=== PATIENT | female | born 1985 | race Caucasian/White ===

== ENCOUNTER 2023-11-11 14:22 | Emergency (ER) | payer OTHER, SELFPAY ==
[2023-11-11 14:24] VITALS: BP 177/110; PULSE 79; RESP 16; TEMP 36.8; O2SAT 100; BMI 29.8
--- NOTE | 2023-11-11 14:40 | EKG12_ITS ---
Test Reason : CHEST DISCOMFORT Blood Pressure : / mmHG Vent. Rate : 075 BPM Atrial Rate : 075 BPM P-R Int : 142 ms QRS Dur : 082 ms QT Int : 380 ms P-R-T Axes : 052 039 002 degrees QTc Int : 424 ms Normal sinus rhythm Nonspecific T wave abnormality Abnormal ECG Confirmed by MONI TAO, ELIZABETH ([id number]), editor magazine YAMILET SINGH ([id number]) on 11/12/2023 1:05:27 PM Referred By: Confirmed By:ELIZABETH MONTENEGRO MD
--- NOTE | 2023-11-11 14:41 | EX.ED.DYSGE1 ---
HPI History of Present Illness Chief Complaint: Chest Pain Informant: patient Onset/Context/Timing Onset: Weeks Timing: Waxes and wanes Narrative Narrative: Patient presents secondary to hypertension and chest pressure. She has been monitoring her blood pressures at home. In late September she was running high for several days but seem to calm down in early October. Since November 02 she has had higher blood pressure readings again in the 140s to 170s systolic. She made an appointment [facility] and has an appointment next week. Today she developed some chest pressure so she comes in for evaluation. PFSH PFSH Medical History no medical history no medical history Home Medications NK 11/11/23 [History Last Taken Unknown] Allergy/AdvReac Type Severity Reaction Status Date / Time No Known Allergies Allergy Verified 11/11/23 14:24 Surgical History no surgical history Social History Smoking Status: Never smoker ROS ROS ED Constitutional Constitutional ED: Denies chills or fever(s) Eyes Eyes: Denies change in vision ENT ENT ED: Denies rhinorrhea or sore throat Cardiovascular Cardiovascular: Reports chest pain; Denies palpitations Respiratory/Chest Respiratory/Chest: Denies cough or dyspnea Gastrointestinal Gastrointestinal: Denies abdominal pain, nausea or vomiting Genitourinary Genitourinary ED: Denies dysuria Musculoskeletal Musculoskeletal: Denies back pain or extremity pain Integumentary Denies Abrasions or rash Neurologic Neurologic: Denies headache(s) or weakness Psychiatric Psychiatric: Denies anxiety or depression Allergic/Immunologic Allergic/Immunologic ED: Denies lip swelling or urticaria EXAM Physical Exam Const Vital Signs: 11/11/23 14:24 11/11/23 14:45 Temperature 98.2 F Temperature Source Temporal Pulse Rate 79 Respiratory Rate 16 Blood Pressure 177/110 H 161/100 H Blood Pressure Mean 132 120 Pulse Ox 100 Oxygen Delivery Method Room Air Positive well nourished and well developed General Appearance ED: well developed HEENT Reports moist mucous membranes Eyes EOMs intact bilaterally Chest Wall inspection of chest normal and palpation of chest normal Resp normal respiratory effort and clear to auscultation bilaterally Cardio regular rate and regular rhythm GI non-tender Palpation: soft Extremity normal to inspection Neuro oriented x3 and no sensory deficits noted Motor Exam: strength 5/5 throughout Psych mental status grossly normal Skin no rashes or lesions noted MDM MDM MDM Narrative Medical decision making narrative: Patient placed on security monitor. EKG obtained to evaluate for cardiac arrhythmia/ischemia. Labwork obtained to evaluate for leukocytosis, anemia, and electrolyte derangement. Chest x-ray obtained to evaluate for acute lung pathology, cardiac size, or mediastinal abnormality. History & Record Review Discussion w/independent historian: Patient Lab Data Attestation: I reviewed the patient's lab results. Labs: Laboratory Results - last 24 hr 11/11/23 11/11/23 11/11/23 14:45 15:16 17:50 WBC 6.0 RBC 4.08 L Hgb 12.4 Hct 37.2 MCV 91.2 MCH 30.4 MCHC 33.3 RDW Std Deviation 40.7 RDW Coeff of Deidra 12.3 Plt Count 262 MPV 10.3 Immature Gran % (Auto) 0.300 Neut % (Auto) 64.2 Lymph % (Auto) 27.9 [place] % (Auto) 6.3 Eos % (Auto) 0.8 Baso % (Auto) 0.5 Absolute Neuts (auto) 3.9 Absolute Lymphs (auto) 1.68 Nucleated RBC % 0 Sodium 138 Potassium 3.5 Chloride 109 H Carbon Dioxide 25.0 Anion Gap 4 L BUN 14 Creatinine 0.88 Estim Creat Clear Calc 81.69 Est GFR (MDRD) Af Amer 92 Est GFR (MDRD) Non-Af 76 BUN/Creatinine Ratio 15.9 Glucose 96 Calcium 8.9 Troponin I High Sens < 3 L < 3 L Urine Color Straw Urine Clarity Clear Urine pH 6.5 Ur Specific [place] 1.005 Urine Protein Negative Urine Glucose (UA) Normal Urine Ketones Negative Urine Occult Blood Negative Urine Nitrite Negative Urine Bilirubin Negative Urine Urobilinogen Normal Ur Leukocyte Esterase Negative Urine RBC 0 SEEN Urine WBC 0 SEEN Ur Squamous Epith Cells 0 SEEN Urine Bacteria 0 SEEN Urine Mucus 0 SEEN Radiography Diagnostic Testing: Clinical Impression(s) from Imaging Studies Chest X-Ray 11/11/23 14:45 IMPRESSION: Normal x-ray examination of the chest. Electronically Signed: Miguel Medel MD at 15:25 EST , EKG Initial EKG: Attestation: I personally reviewed and interpreted this EKG as follows: Interpretation: Sinus Rhythm (Sinus at 75 with nonspecific T wave flattening.) Treatment and Re-Evaluation :: CBC reveals normal white count 6.0 the hemoglobin of 12.4. Normal differential. Chemistry studies reveal normal potassium at 3.5. Renal function is normal. Initial troponin is less than 3 with 2-hour repeat troponin also less than 3. Urinalysis is unremarkable. EKG is sinus rhythm with flattened T waves. No prior studies available for comparison. Portable chest x-ray per my interpretation reveals no acute abnormalities and no evidence of cardiomegaly. Radiology interpretation is reviewed and agrees. Patient's blood pressure has been watched while here in the emergency room. Her systolic pressure is now in the 120s and 130s without any intervention. She will continue to monitor her symptoms at home and follow-up next week for her doctor's appointment as scheduled. Return instructions given. Discharge Plan Triage Chief Complaint: Chest Pain ED Provider: Carmelina Gilliland Dx/Rx/DC Orders Clinical Impression: Hypertension Instructions: ED Hypertension, To Be Confirmed Prescriptions: No Action NK Primary Care Provider: Care Physician,No Primary Referrals: Clarissa Roy MD [Med Staff - Customer Relations Representative] - Keep [facility] appointment Care Physician,No Primary [Primary Care Provider] - Disposition Disposition: Home, Self Care
[2023-11-11 14:45] VITALS: BP 161/100
--- NOTE | 2023-11-11 14:45 | RAD_ITS ---
STUDY: X-RAY CHEST REASON FOR EXAM: Female, 38 years old. cp TECHNIQUE: Single AP portable view of the chest. COMPARISON: None. FINDINGS: EKG electrodes are seen. The lungs are clear and expanded. There is no demonstrated pleural abnormality. Normal size heart. Normal mediastinum and oscar. Normal visualized pulmonary arteries. Normal visualized aortic arch and descending thoracic aorta. Normal visualized thoracic spine. Normal visualized ribs, clavicles, and shoulders. There is no demonstrated abnormality of the visualized soft tissue structures of the upper abdomen. RAD/Chest 1 View (Portable) IMPRESSION: Normal x-ray examination of the chest. Electronically Signed: Miguel Medel MD at 15:25 [facility] ,
--- NOTE | 2023-11-11 14:47 | NURSING ---
NO OLD EKGS
[2023-11-11 14:55] LABS: Absolute Lymphocyte Count 1.68 X10^3/uL (0.83-4.51); Absolute Neutrophil Count 3.9 X10^3/uL (2.0-7.7); Basophil# 0.03 X10^3/uL; Basophil% 0.5 % (0-1); Eosinophil# 0.05 X10^3/uL; Eosinophils% 0.8 % (0-5); Hematocrit 37.2 % (37-47); Hemoglobin 12.4 g/dL (12.0-15.0); Lymphocyte # 1.68 X10^3/ul (0.83-4.51); Lymphocyte % 27.9 % (19-41); Mean Corp Hgb Conc 33.3 g/dL (32-36); Mean Corpuscular Hgb 30.4 pg (27.0-32.0); Mean Corpuscular Volume 91.2 fL (81-99); Mean Platelet Vol. 10.3 fl (6.2-12.0); Monocyte# 0.38 X10^3/uL; Monocyte% 6.3 % (0-10); NRBC Flagged by Analyzer 0 % (0-5); Neutrophil # 3.86 X10^3/uL (2.7-7.7); Neutrophil % 64.2 % (47-70); Platelet Count 262 K/mm3 (150-450); RBC Distribution Width CV 12.3 % (11.6-14.6); RBC Distribution Width SD 40.7 fl (35.1-43.9); Red Blood Count 4.08 M/mm3 (4.2-5.4)
[2023-11-11 15:11] LABS: Anion Gap 4 (5-15); BUN 14 mg/dL (7-18); BUN/Creat Ratio 15.9 RATIO (10-20); Calcium,Total 8.9 mg/dL (8.5-10.1); Chloride 109 mmol/L (98-107); Creatinine, Serum 0.88 mg/dL (0.55-1.02); EST Glomerular Filtration Rate 76 mL/min (>60); Est Glom Filt Rate - Afr Amer 92 mL/min (>60); Estimated Creatinine Clearance 81.69 ml/min; Glucose 96 mg/dL (74-106); Potassium 3.5 mmol/L (3.5-5.1); Sodium Level 138 mmol/L (136-145); Troponin-I HS (w/2H Reflex) < 3 pg/mL (3.0-54.0)
[2023-11-11 15:25] LABS: Bacteria 0 SEEN /hpf (None Seen); Mucous, Urine 0 SEEN /hpf (<or=2+); Red Blood Cells-Urine 0 SEEN /hpf (0-5); Squamous Epithelial Cells - UA 0 SEEN /hpf (5-10); White Blood Cells 0 SEEN /hpf (0-5)
[2023-11-11 15:29] LABS: Color, Urine Straw (Yellow); Glucose, Dipstick Normal (Normal); Ketone-Dipstick Negative (Negative); Leukocyte Esterase-Dipstick Negative /ul (Negative); Nitrite-Dipstick Negative (Negative); Occult Blood-Urine Negative /ul (Negative); Protein-Dipstick Negative (Negative); Specific Gravity, Urine 1.005 (1.002-1.030); Urine Bilirubin Dipstick Negative (Negative); Urine Clarity Clear (Clear); Urine Urobilinogen Normal (Normal); Urine pH 6.5 (5.0 - 8.0)
[2023-11-11 16:46] LABS: Reflex Troponin-HS? (from REC) Y
[2023-11-11 18:21] LABS: Troponin-I HS < 3 pg/mL (3.0-54.0)
[2023-11-11 18:22] VITALS: BP 132/86; PULSE 63; RESP 16; TEMP 36.3; O2SAT 98
== END 2023-11-11 18:34 | disposition home or self-care (01) ==
PROVIDERS: Emergency Provider Emergency Medicine; Visit Provider Emergency Medicine
DX: I10 Essential (primary) hypertension (principal); R07.89 Other chest pain
CPT/HCPCS: 71045; 80048; 81001; 84484; 85025; 93005; 99284; A4216

== ENCOUNTER → 2024-04-07 | Outpatient (CLI) | payer SELFPAY ==
--- NOTE | 2024-04-07 13:46 | ECHOD_ITS ---
Reason For Study: ELEVATED BLOOD PRESSURE Procedure This was a 2D Doppler, Color Flow transthoracic echocardiogram. Exam performed in department. Left Ventricle Normal size and thickness. The left ventricular ejection fraction is 65 %. Normal diastology for age. Right Ventricle Normal right ventricle. Atria The left and right atria are normal. Mitral Valve Trivial mitral valve insufficiency. Tricuspid Valve Trivial tricuspid valve insufficiency. Unable to estimate RV systolic pressure due to insufficient tricuspid regurgitant envelope. Aortic Valve Trisinus/trileaflet aortic valve. Pulmonic Valve Mild (1+) pulmonic valve insufficiency. Great Vessels Normal sized aortic root. Pericardium/Pleural No pericardial effusion. MMode/2D Measurements & Calculations LVIDd: 4.4 cm IVSd: 1.0 cm LVOT diam: 2.2 cm LVIDs: 3.0 cm LVPWd: 0.93 cm LVOT area: 3.6 cm2 RVDd: 2.6 cm FS: 30.8 % Ao root diam: 2.8 cm LAV(MOD-bp): 40.6 ml LVAd ap4: 22.7 cm2 LAV(MOD-bp) Indexed: 23.4 ml/m2 LVLd ap4: 7.9 cm LAV(MOD-sp2): 47.5 ml EDV(MOD-sp4): 55.0 ml LAV(MOD-sp4): 33.3 ml EDV(sp4-el): 55.4 ml LVAs ap4: 12.1 cm2 LVLs ap4: 6.4 cm ESV(MOD-sp4): 19.4 ml ESV(sp4-el): 19.3 ml EF(MOD-sp4): 64.7 % EF(sp4-el): 65.2 % LVAd ap2: 25.5 cm2 SV(MOD-sp4): 35.6 ml SV(MOD-sp2): 45.6 ml LVLd ap2: 8.3 cm EDV(MOD-sp2): 67.2 ml EDV(sp2-el): 66.4 ml LVAs ap2: 12.3 cm2 LVLs ap2: 6.1 cm ESV(MOD-sp2): 21.7 ml ESV(sp2-el): 21.1 ml EF(MOD-sp2): 67.8 % SV(sp4-el): 36.1 ml LA dimension(2D): 3.4 cm LA A4 area: 14.4 cm2 RA A4 area: 9.0 cm2 TAPSE: 1.9 cm Time Measurements MV dec time: 0.16 sec Doppler Measurements & Calculations MV E max og: 82.3 cm/sec Lat Peak E' Og: 15.8 cm/sec Med Peak E' Og: 11.2 cm/sec MV A max og: 66.4 cm/sec E/E' lat: 5.2 E/E' med: 7.4 MV E/A: 1.2 Ao V2 max: 128.4 cm/sec LV V1 max: 109.5 cm/sec MV dec slope: 522.3 cm/sec2 Ao max P.6 mmHg LV V1 max P.8 mmHg Ao V2 mean: 91.1 cm/sec LV V1 mean P.7 mmHg Ao mean P.7 mmHg LV V1 mean: 76.3 cm/sec Ao V2 VTI: 27.6 cm LV V1 VTI: 23.5 cm AV (velocity ratio): 0.85 MARY(I,D): 3.1 cm2 MARY(V,D): 3.1 cm2 SV(LVOT): 85.6 ml PA V2 max: 90.5 cm/sec PI end-d og: 86.8 cm/sec PA max PG (full): 1.6 mmHg ECHO/Echo Complete Interpretation Summary The left ventricular ejection fraction is 65 %. Mild (1+) pulmonic valve insufficiency. Ordering Physician: Clarissa Roy Referring Physician: Clarissa Roy Performed By: Felicita Dalton RDCS
== END | disposition home or self-care (01) ==
PROVIDERS: PCP Family Medicine; Referring Provider Family Medicine; Visit Provider Family Medicine
DX: R03.0 Elevated blood-pressure reading, without diagnosis of hypertension (principal); R07.9 Chest pain, unspecified
CPT/HCPCS: 93306

== ENCOUNTER 2024-05-25 10:48 | Emergency (ER) | payer OTHER, SELFPAY ==
[2024-05-25 10:48] VITALS: BP 160/97; PULSE 76; RESP 14; TEMP 36.7; O2SAT 98
--- NOTE | 2024-05-25 11:28 | EKG12_ITS ---
Test Reason : CHEST PAIN Blood Pressure : / mmHG Vent. Rate : 062 BPM Atrial Rate : 062 BPM P-R Int : 138 ms QRS Dur : 078 ms QT Int : 412 ms P-R-T Axes : 050 049 036 degrees QTc Int : 418 ms Normal sinus rhythm Nonspecific T wave abnormality Abnormal ECG Confirmed by MONI TAO, ELIZABETH ([id number]), health editor LIDIA COVINGTON ([id number]) on 05/29/2024 6:53:59 AM Referred By: Confirmed By:ELIZABETH MONTENEGRO MD
[2024-05-25 11:35] LABS: Absolute Lymphocyte Count 2.04 X10^3/uL (0.83-4.51); Absolute Neutrophil Count 3.4 X10^3/uL (2.0-7.7); Basophil# 0.04 X10^3/uL; Basophil% 0.7 % (0-1); Eosinophil# 0.14 X10^3/uL; Eosinophils% 2.3 % (0-5); Hematocrit 34.3 % (37-47); Hemoglobin 10.6 g/dL (12.0-15.0); Lymphocyte # 2.04 X10^3/ul (0.83-4.51); Lymphocyte % 33.3 % (19-41); Mean Corp Hgb Conc 30.9 g/dL (32-36); Mean Corpuscular Hgb 25.9 pg (27.0-32.0); Mean Corpuscular Volume 83.9 fL (81-99); Monocyte# 0.45 X10^3/uL; Monocyte% 7.4 % (0-10); NRBC Flagged by Analyzer 0 % (0-5); Neutrophil # 3.43 X10^3/uL (2.7-7.7); Platelet Count 288 K/mm3 (150-450); RBC Distribution Width CV 12.9 % (11.6-14.6); RBC Distribution Width SD 39.5 fl (35.1-43.9); Red Blood Count 4.09 M/mm3 (4.2-5.4); White Blood Count 6.1 K/mm3 (4.4-11.0)
--- NOTE | 2024-05-25 11:35 | RAD_ITS ---
STUDY: X-RAY CHEST REASON FOR EXAM: Female, 39 years old. Chest pain TECHNIQUE: PA and lateral views of the chest. COMPARISON: Comparison is made with prior study of November 11, 2023. FINDINGS: EKG adenosine The lungs are clear and expanded. There is no demonstrated pleural abnormality. Normal size heart. Normal mediastinum and oscar. Normal visualized pulmonary arteries. Normal visualized aortic arch and descending thoracic aorta. Normal visualized thoracic spine. Normal visualized ribs, clavicles, and shoulders. There is no demonstrated abnormality of the visualized soft tissue structures of the upper abdomen. RAD/Chest PA and Lateral IMPRESSION: Normal x-ray examination of the chest. Electronically Signed: Miguel Medel MD at 11:47 EDT ,
--- NOTE | 2024-05-25 11:38 | EDS_ITS ---
<Statement entered by Jason Spangler DO - 05/25/24 15:54> Patient was seen and examined with nurse practitioner all All components of the history and physical confirmed and agreed. History of present illness and physical exam: Patient is a 39-year-old female with no known significant past medical history who presented to the emergency department chief complaint of chest pain. Patient states that she has had chest pain on and off now for several weeks has been following up with her primary care physician who referred her to cardiology. She states that she just recently completed a Holter monitor. She states that the last 4 days she has have had pain every single day which she normally does not have pain every single day. States that the pain will come and go nothing makes this better or worse. Patient states that she has not had any history of blood clots in her legs or lungs denies any recent travel history. Denies any recent sick contacts. She states today that she called the sprinkler helper office who ultimately referred her to here to the emergency department. Review of systems: Agree with above Physical exam: Agree with above MDM Patient is a 39-year-old female who presented to the emerged part with a chief complaint of chest pain the past 4 days. Patient will have a workup performed here on the differential diagnose includes but not limited to ACS, GERD, pericarditis. Once workup is obtained and reviewed she will be reevaluated. Patient CBC was largely unremarkable with no evidence of leukocytosis white blood count normal at 6.1, hemoglobin stable 10.6, platelet count normal at 288. Patient's AST and ALT were 27 and 37 respectively, troponin was less than 3. Patient's urinalysis did not reveal any evidence of infection and had a negative test. Patient's x-ray of her chest showed no acute cardiopulmonary processes. Patient's EKG was reviewed and showed sinus rhythm with a rate of 62 bpm. Patient had a bedside echocardiogram performed no pericardial effusions noted ejection fraction appeared to be normal. At this point time did discuss the results with the patient and she is advised to keep a blood pressure log and take this to her primary care physician to see if she needs an antihypertensive. Patient was also encouraged to follow-up with her sprinkler helper in outpatient setting. She was encouraged return with worsening symptoms or other concerns. She is agreeable with the plan as well as her significant other at bedside all question concerns answered she was discharged home in stable condition. Final impression: Chest pain Disposition: Patient will be discharged home in stable condition Supervising attending attestation: Jason PEÑALOZA History of Present Illness Chief Complaint: Chest Pain Narrative Narrative: Patient is a 39-year-old female who does not take any prescription medications only vitamins presenting to the emergency department for chest pain. Patient states that she has been having chest pain on and off for multiple weeks, she has seen her PCP who referred her to cardiology. Patient did have a Holter monitor placed. Patient states the pain comes and goes however what concerned her is for the last 4 days she has been having pain every day. This is not constant, it does not coincide with any walking or exertion. Patient dates she just be sitting there and it happened. She denies any pain today however she called the sprinkler helper office who referred her to the [facility]. Denies any history of PE, DVT, denies any recent travel. Denies any recent surgery. [facility] Medical History (Updated 05/25/24 @ 12:55 by TEZ Alexander) Tachycardia Home Medications ?Medication ?Instructions ?Recorded ?Last Taken ?Type NK 11/11/23 Unknown History Allergy/AdvReac Type Severity Reaction Status Date / Time No Known Allergies Allergy Verified 05/25/24 10:49 Family History (Updated 05/23/24 @ 14:20 by Christiana Dobbins RN) Mother Rodrigo's angina Hypertension Grandfather Cancer Social History Smoking Status: Never smoker ROS ROS ED ROS Narrative Constitutional: Negative for fever, chills, weight loss, weakness Eyes: Negative for vision loss, vision change, double vision ENT: Negative for any sore throat, ear pain, congestion Cardiovascular: Negative for any tightness, palpitations. Positive for chest pain Respiratory: Negative for any cough, sputum production, hemoptysis, dyspnea, dyspnea on exertion, orthopnea Gastrointestinal: Negative for any abdominal pain, nausea, vomiting, diarrhea, constipation, blood in stool, blood in vomit : Negative for any urinary frequency, dysuria, retention, blood in urine Muscle skeletal: Negative for any neck pain, back pain Neurological: Negative for any headache, syncope, dizziness Skin: Negative for any rashes, itching, abrasions, lacerations Psychiatric: Negative for any depression, anxiety, stress, suicidal ideation, homicidal ideation Hematologic: Negative for any excessive bruising, easy bleeding EXAM Physical Exam Narrative Exam Narrative: Vital signs reviewed. HEET: Head normocephalic atraumatic, TMs clear bilaterally. Posterior pharynx is clear, moist mucous membranes. Nares clear bilaterally. Neck: Supple with no lymphadenopathy or tenderness. No signs of meningismus. Cardiac: Regular rate and rhythm no murmurs gallops or rubs, equal peripheral pulses bilaterally. Respiratory: Lungs clear to auscultation bilaterally. No chest tenderness. Abdomen: Soft, nontender, nondistended. No abdominal bruit or pulsatile masses. No hepatosplenomegaly Extremities: No peripheral edema, no signs of gross trauma or deformity. Active full range of motion of all extremities. Neuro: Cranial nerves II through XII intact, no focal neurological deficits. Skin: Clean dry and intact with no rash, purpura, petechiae, vesicles or pustules. Backs/flank: No CVA tenderness, no midline spinal tenderness, no deformity. Psych: Normal mood and affect. No SI, HI or acute psychosis. Const Vital Signs: 05/25/24 10:48 Temperature 98.1 F Temperature Source Temporal Pulse Rate 76 Respiratory Rate 14 Blood Pressure 160/97 H Blood Pressure Mean 118 Pulse Ox 98 Oxygen Delivery Method Room Air Positive well nourished MDM MDM Lab Data Labs: Laboratory Results - last 24 hr 05/25/24 05/25/24 11:13 12:15 WBC 6.1 RBC 4.09 L Hgb 10.6 L Hct 34.3 L MCV 83.9 MCH 25.9 L MCHC 30.9 L RDW Std Deviation 39.5 RDW Coeff of Deidra 12.9 Plt Count 288 MPV 11.0 Immature Gran % (Auto) 0.300 Neut % (Auto) 56.0 Lymph % (Auto) 33.3 [place] % (Auto) 7.4 Eos % (Auto) 2.3 Baso % (Auto) 0.7 Absolute Neuts (auto) 3.4 Absolute Lymphs (auto) 2.04 Nucleated RBC % 0 Sodium 140 Potassium 4.0 Chloride 109 H Carbon Dioxide 26.0 Anion Gap 5 BUN 12 Creatinine 0.82 Est GFR (MDRD) Af Amer 99 Est GFR (MDRD) Non-Af 82 BUN/Creatinine Ratio 14.6 Glucose 88 Calcium 9.1 Total Bilirubin 0.20 AST 27 ALT 37 Alkaline Phosphatase 52 Troponin I High Sens < 3 L Total Protein 7.5 Albumin 3.6 Globulin 3.9 Albumin/Globulin Ratio 0.9 Lipase 51 Urine Color Straw Urine Clarity Clear Urine pH 6.5 Ur Specific [place] 1.010 Urine Protein Negative Urine Glucose (UA) Normal Urine Ketones Negative Urine Occult Blood Negative Urine Nitrite Negative Urine Bilirubin Negative Urine Urobilinogen Normal Ur Leukocyte Esterase Negative Urine RBC 0 SEEN Urine WBC 0 SEEN Ur Squamous Epith Cells 0-5 SEEN Urine Bacteria 0 SEEN Urine Mucus 0 SEEN Urine Test Negative Radiography Diagnostic Testing: Clinical Impression(s) from Imaging Studies Chest X-Ray 05/25/24 11:35 IMPRESSION: Normal x-ray examination of the chest. Electronically Signed: Miguel Medel MD at 11:47 EDT , EKG EKG shows normal sinus rhythm: Attestation: I personally reviewed and interpreted this EKG as follows: Interpretation: Sinus Rhythm Comments: Normal sinus rhythm, rate 62 bpm, AK interval 130 ms, QRS duration 78 ms, no acute ST elevation, no acute infarct noted. Treatment and Re-Evaluation :: Differential diagnosis includes however is not limited to: ACS, IA, anxiety, PE Patient appears to be in no obvious distress vital signs are stable, patient is nontoxic-appearing. Presenting to the emergency department with complaints of chest pain. Patient will receive a chest pain workup including two-view chest x-ray, CBC CMP lipase as well as a troponin. Patient is currently not have any chest pain at this time. Patient heart rate is 75, 100% on room air, patient denies any chest pain with inspiration. Low suspicion for any PE. All radiologic examinations were read, reviewed by the emergency department attending. From these reads, a plan of care will be put in place. Patient appears generally well, reevaluation, patient was still pain-free. Chest x-ray was normal, lab values showing normal CBC, chemistries were unremarkable, troponin was less than 3 with a lipase of 51. No evidence of acute ACS, IA, cardiopulmonary pathology. Urinalysis was negative for infection. Patient was offered some antiacids however she states he would prefer to follow-up outpatient, does not want any prescriptions today. At this time, patient will follow-up outpatient. Stable for discharge. Discharge Plan Triage Chief Complaint: Chest Pain ED Midlevel Provider: Clem Gusman ED Provider: Jason Spangler Dx/Rx/DC Orders Clinical Impression: Chest pain Instructions: ED Chest Pain, Uncertain Cause Prescriptions: No Action NK Primary Care Provider: Clarissa Roy Referrals: Clarissa Roy MD [Primary Care Provider] - Activity Restrictions/Additional Instructions: Please follow-up outpatient. Print Language: Burundian Disposition Disposition: Home, Self Care
[2024-05-25 11:56] LABS: ALB/GLOB Ratio 0.9 RATIO (0.9-2.4); AST(SGOT) 27 U/L (15-37); Alanine Aminotransfer ALT/SGPT 37 U/L (13-56); Albumin, Serum 3.6 g/dL (3.2-5.0); Alkaline Phosphatase 52 U/L (45-117); Anion Gap 5 (5-15); BUN 12 mg/dL (7-18); BUN/Creat Ratio 14.6 RATIO (10-20); Calcium,Total 9.1 mg/dL (8.5-10.1); Chloride 109 mmol/L (98-107); Creatinine, Serum 0.82 mg/dL (0.55-1.02); EST Glomerular Filtration Rate 82 mL/min (>60); Est Glom Filt Rate - Afr Amer 99 mL/min (>60); Globulin 3.9 g/dL (2.2-4.2); Glucose 88 mg/dL (74-106); Lipase 51 U/L (13-75); Protein, Total 7.5 g/dL (6.4-8.2); Sodium Level 140 mmol/L (136-145); Troponin-I HS < 3 pg/mL (3.0-54.0)
[2024-05-25 12:22] VITALS: PULSE 63; RESP 15; O2SAT 99
[2024-05-25 12:28] LABS: Bacteria 0 SEEN /hpf (None Seen); Mucous, Urine 0 SEEN /hpf (<or=2+); Red Blood Cells-Urine 0 SEEN /hpf (0-5); White Blood Cells 0 SEEN /hpf (0-5)
[2024-05-25 12:30] VITALS: PULSE 66; RESP 16; O2SAT 100
[2024-05-25 12:33] LABS: Color, Urine Straw (Yellow); Glucose, Dipstick Normal (Normal); Ketone-Dipstick Negative (Negative); Leukocyte Esterase-Dipstick Negative /ul (Negative); Nitrite-Dipstick Negative (Negative); Occult Blood-Urine Negative /ul (Negative); Protein-Dipstick Negative (Negative); Urine Bilirubin Dipstick Negative (Negative); Urine Clarity Clear (Clear); Urine Urobilinogen Normal (Normal); Urine pH 6.5 (5.0 - 8.0)
[2024-05-25 12:44] LABS: Squamous Epithelial Cells - UA 0-5 SEEN /hpf (5-10)
[2024-05-25 12:45] VITALS: BP 152/92; PULSE 60; RESP 14; O2SAT 99
[2024-05-25 12:45] LABS: Internal QC Validated? YES +Cl - CLEAR BKGD; Pregnancy, Urine Negative Negative; Record Kit Lot#,Urine Preg HCG0000772476
[2024-05-25 13:43] VITALS: BP 153/93; PULSE 64; RESP 16; TEMP 36.8; O2SAT 99
== END 2024-05-25 13:43 | disposition home or self-care (01) ==
PROVIDERS: Nurse Practitioner; Emergency Provider Emergency Medicine; PCP Family Medicine; Visit Provider Emergency Medicine
DX: R07.9 Chest pain, unspecified (principal)
CPT/HCPCS: 71046; 80053; 81001; 81025; 83690; 84484; 85025; 93005; 99283; A4216

== ENCOUNTER → 2024-06-13 | Outpatient (CLI) | payer SELFPAY ==
--- NOTE | 2024-06-15 11:17 | STRESSREP_ITS ---
Stress Test Report Date: 06/13/2024 Procedure: Exercise tolerance test Indications: Chest pain Consent: Per the patient Procedure: The patient exercised on a Isaías protocol for 9 minutes and 45 seconds achieving a peak heart rate of 160 bpm (88% predicted maximal heart rate) with a peak blood pressure 160/90 mmHg and a peak MET capacity of approximately 12.5 MET's. The baseline ECG demonstrated normal sinus rhythm. The peak exercise ECG demonstrated no significant ischemic changes. [There were no cardiac dysrhythmias pretest, during exercise, or recovery]. The functional capacity was considered normal for age. Patient had midsternal chest pressure at peak exercise. The examination was discontinued secondary to achieving target heart rate. Impression: 1. Technically adequate (percent predicted maximal heart rate greater than 85%) exercise tolerance test 2. Stress test is positive for exercise-induced chest pain. 3. Stress test test is negative for exercise-induced EKG changes of ischemia. 4. Functional capacity is normal for age This note was generated with [employer] software. It may contain incorrect words, spelling, and punctuation that were not noted in checking the note before signing.
== END | disposition home or self-care (01) ==
LOC: CVS 12:25
PROVIDERS: PCP Family Medicine; Referring Provider Internal Medicine Cardiovascular Disease; Visit Provider Internal Medicine Cardiovascular Disease
DX: R07.9 Chest pain, unspecified (principal); R00.2 Palpitations
CPT/HCPCS: 93017

== ENCOUNTER → 2024-07-03 | Outpatient (CLI) | payer SELFPAY ==
[2024-07-03 14:41] LABS: Anion Gap 5 (5-15); BUN 10 mg/dL (7-18); BUN/Creat Ratio 10.4 RATIO (10-20); Calcium,Total 9.3 mg/dL (8.5-10.1); Chloride 99 mmol/L (98-107); Creatinine, Serum 0.96 mg/dL (0.55-1.02); EST Glomerular Filtration Rate 69 mL/min (>60); Est Glom Filt Rate - Afr Amer 83 mL/min (>60); Glucose 103 mg/dL (74-106); Potassium 3.4 mmol/L (3.5-5.1); Sodium Level 135 mmol/L (136-145)
== END | disposition home or self-care (01) ==
PROVIDERS: PCP Family Medicine; Referring Provider Internal Medicine Cardiovascular Disease; Visit Provider Internal Medicine Cardiovascular Disease
DX: I10 Essential (primary) hypertension (principal)
CPT/HCPCS: 36415; 80048

== ENCOUNTER → 2024-07-19 | Outpatient (CLI) | payer SELFPAY ==
--- NOTE | 2024-07-19 13:13 | CT_ITS ---
STUDY: CT CHEST WITHOUT CONTRAST REASON FOR EXAM: Female, 39 years old. CP WITH STRESS TEST RADIATION DOSAGE (If Supplied By Facility): CTDIvol = ( 17.60 ) mGy, DLP = ( 1027.34 ) mGycm TECHNIQUE: Transaxial imaging was performed without the administration of intravenous contrast material. Cardiac over read examination. Individualized dose optimization techniques were used for this CT. COMPARISON: No relevant priors. FINDINGS: CHEST The lungs are normal. There is no demonstrated pleural abnormality. Normal heart and pericardium. No coronary calcification is seen. Normal mediastinum. Normal hilar regions. Normal unenhanced pulmonary arteries. Normal aorta arch and descending thoracic aorta. Normal osseous structures. Fatty infiltration of the liver. Small hiatal hernia. CT/Limited Chest CT Cardiac Only IMPRESSION: No coronary artery calcification is seen. Electronically Signed: Miguel Medel MD at 14:45 EDT ,
[2024-07-19 13:18] VITALS: BP 144/100; PULSE 62; RESP 16; TEMP 36.6; O2SAT 100; BMI 29.2
[2024-07-19 13:36] VITALS: BP 144/100; PULSE 58
[2024-07-19] MEDS: Nitroglycerin SL (ED/IMG/CATH) 0.4 MG TABLET SL (13:36)
[2024-07-19 13:44] VITALS: BP 117/81; PULSE 69; RESP 14; O2SAT 99
--- NOTE | 2024-07-19 17:58 | CCTA_ITS ---
CCTA w/Cont Coronary Arteries Date of Study:: 07/19/24 CHEST PAIN Coronary Calcium Scoring: High-resolution Computed Tomographic imaging of the chest was performed on [07/19/24 ], with particular attention paid to the coronary arteries. Intravenous contrast agent was administered per protocol and images reconstructed and displayed. LEFT MAIN CORONARY ARTERY: Arises from the left coronary cusp and is normal [] LEFT ANTERIOR DESCENDING CORONARY ARTERY: Arises from the left main coronary artery and courses towards the apex of the ventricle with no significant atherosclerotic plaquing [] LEFT CIRCUMFLEX CORONARY ARTERY: Nondominant vessel with no significant atherosclerotic plaquing noted [] RIGHT CORONARY ARTERY: Dominant right coronary artery giving of a posterior ofelia cending artery and posterolateral vessel with no atherosclerosis noted Conclusion: CT angiogram demonstrating no significant atherosclerotic plaquing and no stenosis present.
== END | disposition home or self-care (01) ==
LOC: CT 13:08
PROVIDERS: PCP Family Medicine; Referring Provider Internal Medicine Cardiovascular Disease; Visit Provider Internal Medicine Cardiovascular Disease
DX: R07.9 Chest pain, unspecified (principal)
CPT/HCPCS: 75574; 76380; Q9967

== ENCOUNTER → 2025-03-06 | Outpatient (CLI) | payer SELFPAY ==
[2025-03-06 11:59] LABS: Absolute Lymphocyte Count 2.14 X10^3/uL (0.83-4.51); Absolute Neutrophil Count 3.8 X10^3/uL (2.0-7.7); Basophil# 0.04 X10^3/uL; Basophil% 0.6 % (0-1); Eosinophil# 0.14 X10^3/uL; Eosinophils% 2.2 % (0-5); Hematocrit 38.2 % (37-47); Hemoglobin 12.9 g/dL (12.0-15.0); Lymphocyte # 2.14 X10^3/ul (0.83-4.51); Lymphocyte % 33.1 % (19-41); Mean Corp Hgb Conc 33.8 g/dL (32-36); Mean Corpuscular Hgb 30.9 pg (27.0-32.0); Mean Corpuscular Volume 91.4 fL (81-99); Mean Platelet Vol. 11.1 fl (6.2-12.0); Monocyte% 4.6 % (0-10); NRBC Flagged by Analyzer 0 % (0-5); Neutrophil # 3.83 X10^3/uL (2.7-7.7); Neutrophil % 59.2 % (47-70); Platelet Count 268 K/mm3 (150-450); RBC Distribution Width CV 12.3 % (11.6-14.6); RBC Distribution Width SD 40.6 fl (35.1-43.9); Red Blood Count 4.18 M/mm3 (4.2-5.4); White Blood Count 6.5 K/mm3 (4.4-11.0)
[2025-03-06 12:32] LABS: Anion Gap 11 (5-15); BUN 10 mg/dL (4-19); Calcium,Total 9.7 mg/dL (7.6-11.0); Carbon Dioxide 24.5 mmol/L (21.0-32.0); Chloride 102 mmol/L (98-108); Creatinine, Serum 0.82 mg/dL (0.70-1.20); EST Glomerular Filtration Rate 94 (>60); Glucose 81 mg/dL (70-99); Potassium 4.3 mmol/L (3.3-5.1); Sodium Level 138 mmol/L (133-145)
--- OUTSIDE RECORDS SUMMARY | 2025-03-06 21:37 | XMS RPT_ITS | CCD ---
Author Organization [facility] CliniSynm Care Team Providers Care Biodiesel Engine Specialist Name Role Phone [facility] Attending Unavailable [facility] Primary Care Unavailable [facility] Admitting Unavailable NO, DOCTOR ON Consulting Unavailable [facility] Referring Unavailable Per Lomeli Attending Unavailable [facility] Primary Care Unavailable Per Lomeli Consulting Unavailable Per Isaac Attending Unavailable Per Lomeli Referring Unavailable [facility] Primary Care Unavailable [facility] Referring Unavailable Per Lomeli Attending Unavailable [facility] Referring Unavailable [facility] Attending Unavailable [facility] Primary Care Unavailable Care Physician, No Primary Primary Care Unava ilable Carmelina Gilliland Attending Unavailable [facility] Primary Care Unavailable Per Lomeli Referring Unavailable Per Lomeli Attending Unavailable Lyndsey Isidro Attending Unavailable [facility] Primary Care Unavailable [facility] Primary Care Unavailable [facility], Clarissa Referring Unavailable Per Lomeli Attending Unavailable [facility] Primary Care Unavailable Per Lomeli Attending Unavailable Per Lomeli Referring Unavailable [facility] Primary Care Unavailable Per Lomeli Attending Unavailable Per Lomeli Referring Unavailable [facility] Primary Care Unavailable Jason Spangler Attending Unavailable [facility] Primary Care Unavailable Per Lomeli Attending Unavailable Per Lomeli Referring Unavailable [facility] Unavailable Per Lomeli Referring Unavailable Viola Dumont Attending [facility]availabl e [facility] Unavailable Per Lomeli Consulting Unavailable Per Lomeli Referring Unavailable Viola Dumont Attending Unavailchristian Roy MD, Dr. Romo Primary Care Provider Dr. Clarissa Roy MD Referring Provider Anupama Diaz Attending Provider Medications Current Medications Medication Drug Class(es) Dates Sig (Normalized) Sig (Original) 24 hr metoprolol succinate 50 mg extended release oral tablet (2 sources) beta-Adrenergic Desi Start: 06-26-2024 take 1 tablet by mouth twice daily Metoprolol Succinate 50 mg tablet extended release 24 hr Active 50 mg PO TWICE A DAY June 26, 2024 8:46am Start: 06-01-2024 End: 06-26-2024 take 1 tablet by mouth once daily Metoprolol Succinate 50 mg tablet extended release 24 hr Discontinued 50 mg PO daily June 01, 2024 12:00am June 26, 2024 8:47am Completed/Discontinued Medications Medication Drug Class(es) Dates Sig (Normalized) Sig (Original) hydroCHLOROthiazide 25 mg oral tablet (1 source) Thiazide Diuretic Start: End: take 1 tablet by mouth once daily in the morning Hydrochlorothiazide 25 mg tablet Discontinued 25 mg PO EVERY MORNING June 26, 2024 12:00am March 06, 2025 9:31am Problems Active Problems Problem Classification Problem Date Documented Da te Episodic/Chronic Cardiac dysrhythmias (5 sources) Palpitations; Translations: [Tachycardia, unspecified] Onset: 06-01-2024 06-01-2024 Episodic Essential hypertension (5 sources) Hypertensive disorder; Translations: [Essential (primary) hypertension] Onset: 07-25-2024 11-11-2023 Chronic Malaise and fatigue (2 sources) Fatigue; Translations: [Other fatigue] 03-06-2025 Episodic Nonspecific chest pain (4 sources) Chest pain, unspecified; Translations: [Chest pain] Onset: 08-08-2024 06-26-2024 Episodic Past or Other Problems Problem Classification Problem Date Documented Da te Episodic/Chronic Other circulatory disease (1 source) Elevated blood-pressure reading, without diagnosis of hypertension; Translations: [Elevated blood-pressure reading, without diagnosis of hypertension] Onset: 04-25-2024 Episodic Results Test Name Value Interpretation Reference Range Facility Coronary Angiography CTon Coronary Angiography CT [facility] Imaging Services [address] [place] [address] 07/19/24 1758 MR#: [id number] Acct: [id number] Name: EILEEN STUART Rep #: [id number] : 1985 39 From: Per Isaac MD PCP: Dr. Clarissa Roy MD Status:REG CLI Y Location: CT CCTA w/Cont Coronary Arteries Date of Study:: 07/19/24 CHEST PAIN Coronary Calcium Scoring: High-resolution Computed Tomographic imaging of the chest was performed on [07/19/24 ], with particular attention paid to the coronary arteries. Intravenous contrast agent was administered per protocol and images reconstructed and displayed. LEFT MAIN CORONARY ARTERY: Arises from the left coronary cusp and is normal [] LEFT ANTERIOR DESCENDING CORONARY ARTERY: Arises from the left main coronary artery and courses towards the apex of the ventricle with no significant atherosclerotic plaquing [] LEFT CIRCUMFLEX CORONARY ARTERY: Nondominant vessel with no significant atherosclerotic plaquing noted [] RIGHT CORONARY ARTERY: Dominant right coronary artery giving of a posterior descending artery and posterolateral vessel with no atherosclerosis noted Conclusion: CT angiogram demonstrating no significant atherosclerotic plaquing and no stenosis present. 07/19/24 180 Date Per Isaac MD Cosigner Signature (if applicable): Date CC: Dr. Per Isaac MD; Dr. Clarissa Roy MD; Dr. Per Lomeli MD Signed Normal [facility] Limited Chest CT Cardiac Onl yo 07-19-[address] Cardiac Only [facility] Imaging Services [address] [place] [id number] Cardiac Only MR#: [id number] Acct: [id number] Name: EILEEN STUART Rep #: [id number] : 1985 F 39 From: Miguel ochoa MD PCP: Dr. Clarissa Roy MD Status: [facility] Study: Limited Chest CT Cardiac Only Date of Exam: Exam# [id number] Ordering Dr: [place] [id number] STUDY: CT CHEST WITHOUT CONTRAST REASON FOR EXAM: Female, 39 years old. CP WITH STRESS TEST RADIATION DOSAGE (If Supplied By Facility): CTDIvol = ( 17.60 ) mGy, DLP = ( 1027.34 ) mGycm TECHNIQUE: Transaxial imaging was performed without the administration of intravenous contrast material. Cardiac over read examination. Individualized dose optimization techniques were used for this CT. COMPARISON: No relevant priors. FINDINGS: CHEST The lungs are normal. There is no demonstrated pleural abnormality. Normal heart and pericardium. No coronary calcification is seen. Normal mediastinum. Normal hilar regions. Normal unenhanced pulmonary arteries. Normal aorta arch and descending thoracic aorta. Normal osseous structures. Fatty infiltration of the liver. Small hiatal hernia. CT/Limited Chest CT Cardiac Only IMPRESSION: No coronary artery calcification is seen. Electronically Signed: Miguel Medel MD at 14:45 EDT Reading Location ID and State: [facility] / [place] , Service support , CC: Dr. Clarissa Roy MD; Dr. Per Lomeli MD Mass Spectrometry Specialist: Signed Normal [facility] Basic Metabolic Profile (BMP )on 07-03-2024 BUN/CRE 10.4 RATIO Normal 07-09 [facility] Comment on above: Performed By: #### L 500.2500 ####[facility] [address] [place], [address] CA,Total 9.3 mg/dL Normal 8.5-10.1 [facility] Comment on above: Performed By: #### L 500.2500 ####[facility] [address] [place], [address] Chloride [Moles/Vol] 99 mmol/L Normal 98-107 [facility] Comment on above: Performed By: #### L 500.2500 ####[facility] [address] [place], [address] CO2 [Moles/Vol] 31.0 mmol/L Normal 21.0-32.0 [facility] Comment on above: Performed By: #### L 500.2500 ####[facility] [address] [place], [address] Creatinine [Mass/Vol] 0.96 mg/dL Normal 0.55-1.02 [facility] Comment on above: Result Comment: The validity of the calculated GFR GFRAA in patients over 70 years has not been determined. Clinical correlation is essential. Performed By: #### L 500.2500 ####[facility] [address] [place], [address] EST GFR - AA 83 mL/min Normal >60 [facility] Comment on above: Result Comment: Afri can [place] GFR Calc Performed By: #### L 500.2500 ####[facility] [address] [place], [address] GAP 5 Normal 5-15 [facility] Comment on above: Performed By: #### L 500.2500 ####[facility] [address] [place], [address] GFR/1.73 sq M.predicted among non-blacks MDRD (S/P/Bld) [Vol rate/Area] 69 mL/min/{1.73_m2} Normal >60 [facility] Comment on above: Result Comment: Non- GFR Calc Performed By: #### L 500.2500 ####[facility] [address] [place], [address] Glucose [Mass/Vol] 103 mg/dL Normal 74-106 [facility] Comment on above: Result Comment: Fast ing Glucose result from 100 to 125 mg/dL suggests IMPAIRED HOMEOSTASIS per A.D.A. criteria. Performed By: #### L 500.2500 ####[facility] [address] [place], [address] Potassium [Moles/Vol] 3.4 mmol/L Low 3.5-5.1 [facility] Comment on above: Performed By: #### L 500.2500 ####[facility] [address] [place], [address] Sodium [Moles/Vol] 135 mmol/L Low 136-145 [facility] Comment on above: Performed By: #### L 500.2500 ####[facility] [address] [place], [address] Urea nitrogen [Mass/Vol] 10 mg/dL Normal 7-18 [facility] Comment on above: Performed By: #### L 500.2500 ####[facility] [address] [place], [address] Cardiology Visit Reporton Cardiology Visit Report [facility] [address] [place], [place] [address] OFFICE VISIT Date of Service: 06/26/24 MR#: [id number] Acct: [id number] Name: EILEEN STUART Rep #: [id number] : 1985 Provider: Dr. Per yoder MD Age/Sex: 39/F Location[place] [facility] Status: Signed [facility] History of Present Illness Details: Ms. Stuart comes in today is a pleasant 39-year-old white female with her . To review the results of her stress test and to look at options for further evaluation due to continued chest symptoms. The patient did a treadmill stress test that did not show any ischemic changes. However she did have some mild chest discomfort that increased after she got off of the stress test and was headed home. She had been placed on metoprolol and her blood pressure initially was much better controlled in her home environment but recently has drifted back up to the 130???140/80???90 range. She is also noting some mild ankle edema. Heart rate in office today is 71 respiratory rate 16 O2 sats 98% blood pressure is 150/91. The patient did report that overall she feels better but she is continuing to have some of these chest symptoms. Intake Vital Signs 06/01/24 14:28 06/26/24 08:34 Height 5 ft 2 in 5 ft 2 in Weight: 163 lb BMI 29.8 BP 150/91 H Blood Pressure Location Lt brachial Position Sitting Respiration 16 Pulse 71 Pulse Source Monitor Pulse Oximetry (%) 98 Oxygen Delivery Method room air Intake Visit Reasons: Per Dr. Lomeli Manager Cancer Required: No Accompanied by: Is patient in pain?: No Allergies No Known Allergies Allergy (Verified 06/26/24 08:35) Medications ???Medication ???Instructions ???Recorded ???Confirmed ???Type hydrochlorothiazide 25 mg tablet 25 mg PO QAM #30 tabs 06/26/24 06/26/24 Rx metoprolol succinate 50 mg 50 mg PO BID #60 tabs 06/26/24 06/26/24 Rx tablet,extended release 24 hr Have you fallen in the past year?: No PFSH Medical History Chest pain Tachycardia Family History Mother Rodrigo's angina Hypertension Grandfather Cancer Grandmother Heart disease Myocardial infarction Social History Smoking Status: Never smoker alcohol intake: never substance use type: does not use caffeine: Yes ROS Const Const: Positive for fatigue; Negative for weakness ENT ENT: Positive for dizziness; Negative for balance problems Cardio Chest Pain: Yes Palpitations: No Edema: Bilateral Muscle aches with walking: None Resp Respiratory: Negative for SOB with activity, SOB at rest or SOB orthopnea SOB lying down GI GI: Negative nausea, vomiting or heartburn Musc Musc: Negative for muscle weakness or balance problems Neuro Neuro: Positive for dizziness; Negative for lightheadedness, near syncope, syncope or weakness Endo Endo: Positive for fatigue Cardiology Exam Const Appearance: cooperative, comfortable, no acute distress and well developed Head Head: normal to inspection Eyes General: appearance normal, both eyes and all related structures Neck Neck: normal visual inspection Chest Chest inspection: normal inspection of the chest, symmetric chest movement and normal respiratory effort GI GI: normal to inspection Neuro General: patient alert and patient oriented x3 Extremities Lower Extremity Edema: Trace: Bilateral Psych Psychological: normal affect Supplemental Info Supplemental Information Labs: No Data to Display Diagnostics: Electrocardiogram Echocardiogram Stress Test Chest X-Ray Pulmonary: No Data to Display Past Visits: Cardiology Visit 06/26/24 Assessment and Plan Assessment and Plan (1) HTN (hypertension), benign: Status: Acute Plan: Patient's blood pressure remains elevated in office at 150/91. Heart rate is 71 and regular. Blood pressure in her home environment 130???140/80???90. I would recommend that we increase her metoprolol to 50 mg twice daily and add hydrochlorothiazide 25 mg daily. She will continue to check her blood pressures in her home environment and I instructed her on how to watch for orthostatic changes. Will check a basic metabolic panel in 1 week. The patient will continue to monitor her home blood pressures. (2) Chest pain: Status: Inactive Qualifiers: Chest pain type: unspecified Qualified Code(s): R07.9 - Chest pain, unspecified Plan: The patient continues to have chest pains that are somewhat atypical she did have an routine treadmill stress test that did not show ischemic EKG changes with some chest symptoms. I would recommend (more content not included)... Normal [facility] LIPID PROFILEon 06-21-2024 Cholesterol [Mass/Vol] 227 mg/dL Normal 0 - 240 [facility] Comment on above: Performed By: #### 2 [id number] #### [facility],[address] [place] [address] Cholesterol in HDL [Mass/Vol] 62 mg/dL High 40 - 60 [facility] Comment on above: Performed By: #### 2 [id number] #### [facility],[address] [place] [address] Cholesterol in LDL [Mass/Vol] 147 mg/dL High 0 - 129 [facility] Comment on above: Performed By: #### 2 03615 #### [facility],[address] [place] [address] Cholesterol.total/Dina sterol in HDL [Mass ratio] 3.7 {ratio} Normal 0.0 - 5.0 [facility] Comment on above: Performed By: #### 2 69733 #### [facility],[address] [place] [address] Lipid 1996 panel Normal [facility] Comment on above: Result Comment: LIPI D PROFILE Performed By: #### 2 [id number] #### [facility],[address] [place] [address] Triglyceride [Mass/Vol] 91 mg/dL Normal 0 - 150 [facility] Comment on above: Performed By: #### 2 [id number] #### [facility],[address] [place] [address] Stress Reporton 06-15-2024 Stress Report [facility] Cardiovascular Services [address] [place] [address] MR#: [id number] Acct: [id number] Name: EILEEN STUART Rep #: [id number] : 1985 39 From: Viola Dumont MD Primary Care: Dr. Clarissa Roy MD Status: REG CLI Referring Dr: Per Lomeli MD Sex: F C Stress Test Report Date: 06/13/2024 Procedure: Exercise tolerance test Indications: Chest pain Consent: Per the patient Procedure: The patient exercised on a Isaías protocol for 9 minutes and 45 seconds achieving a peak heart rate of 160 bpm (88% predicted maximal heart rate) with a peak blood pressure 160/90 mmHg and a peak MET capacity of approximately 12.5 MET's. The baseline ECG demonstrated normal sinus rhythm. The peak exercise ECG demonstrated no significant ischemic changes. [There were no cardiac dysrhythmias pretest, during exercise, or recovery]. The functional capacity was considered normal for age. Patient had midsternal chest pressure at peak exercise. The examination was discontinued secondary to achieving target heart rate. Impression: 1. Technically adequate (percent predicted maximal heart rate greater than 85%) exercise tolerance test 2. Stress test is positive for exercise-induced chest pain. 3. Stress test test is negative for exercise-induced EKG changes of ischemia. 4. Functional capacity is normal for age This note was generated with Youjia[employer] software. It may contain incorrect words, spelling, and punctuation that were not noted in checking the note before signing. 06/15/24 1129 Date Viola Dumont MD CC: Dr. Clarissa Roy MD; Dr. Per Lomeli MD Date Dictated: 06/15/241116 Date Transcribed: 06/15/241116 Mass Spectrometry Specialist: NN Signed Normal [facility] 12 Lead EKG performed by [facility] on 06-01-2024 12 Lead EKG performed by [address] [address] 12 Lead EKG performed by [facility] 06/01/2418 MR#: [id number] Acct: [id number] Name: EILEEN STUART Rep #: [id number] : 1985 39 From: Per Lomeli MD Attending Dr: Dr. Per Lomeli MD Status: DE P AMB Ordering Dr: Per Lomeli MD Date: 06/01/24 Location: [facility] Sex: F C Admitted: [facility]12 Lead EKG performed by [facility] ECG Report Interpretation ---Sinus Rhythm WITHIN NORMAL LIMITSElectronically signed on 06/01/2024 at 15:[address] Per Lomeli [employer] Version [id number] 06/01/24 1527 Date Per Lomeli MD CC: Dr. Clarissa Roy MD Date Dictated: 06/01/24817 Date Transcribed: 06/01/24817 Mass Spectrometry Specialist: Signed Normal [facility] Cardiology Visit Reporton Cardiology Visit Report [facility] [address] [place] [address] OFFICE VISIT Date of Service: 06/01/24 MR#: [id number] Acct: [id number] Name: EILEEN STUART Rep #: [id number] : 1985 Provider: Dr. Per yoder MD Age/Sex: 39/F Location: [facility] Status: Signed HPI HPI History of Present Illness Details: Ms. Stuart comes in today is a pleasant 39-year-old white female with her . She is here for new patient visit for chest discomfort and palpitations. The patient says for the last month or so she has been developing some chest discomfort/tightness that occurs primarily later in the day when she is overly tired. She cannot predict it other than the fact that it seems to occur when she is tired. She denies any exertional symptoms at this time. There is no family history of early coronary disease she is hypertensive episodically she denies hyperlipidemia although she does not know if she has been tested or not she is not diabetic and has never smoked. She is not exposed to secondhand smoke. The patient denies any syncope or near syncope she reports that she and her had been historically walking about 2 miles a day together. Blood pressure in office today was significantly elevated at 164/101 she does taken in her home environment and it is usually runs in the 130/85 range. However there have been episodes especially when she was out west in [place] when it was in the 160???180 range. The patient had blood pressures done May 25, 2024 that were 153/90. The patient did not have gestational diabetes or gestational hypertension. Her youngest child is 7 years old. The patient had a 14-day event recorder performed. She had multiple complaints that did not correlate with any arrhythmia. Some of the complaints however of fluttering did correlate with PACs and PVCs. She had a less than 1% burden of ventricular ectopy and less than 1% burden of supraventricular ectopy. Patient had an echocardiogram done April 07, 2024 her LV ejection fraction was 65% she had minimal pulmonic valve insufficiency otherwise it was unremarkable. The patient was actually evaluated in the [place] emergent department November 11, 2023. She was having chest pressures and hypertension at the time. Her troponins were less than 3 x 2. CBC and basic metabolic panel were within normal limits. Chest x-ray was normal and her EKG did not show any acute changes there were some nonspecific T wave changes but there was baseline artifact. Her initial blood pressure was 177/110 and as she was evaluated and rested in the emergency department it came down to the 120???130 systolic range. The patient is EKG in the office today shows sinus rhythm at 71 bpm and is normal. Intake Vital Signs 11/11/23 14:24 05/25/24 10:48 06/01/24 14:28 Height 5 ft 2 in 5 ft 2 in 5 ft 2 in Weight: 162 lb BMI 29.6 BP 164/101 H Blood Pressure Location Lt brachial Position Sitting Respiration 16 Pulse 81 Pulse Source Monitor Pulse Oximetry (%) 98 Oxygen Delivery Method room air Intake Visit Reasons: Tachycardia (Meidel) Manager Cancer Required: No Accompanied by: Is patient in pain?: No Allergies No Known Allergies Allergy (Verified 06/01/24 14:29) Medications ???Medication ???Instructions ???Recorded ???Confirmed ???Type metoprolol succinate 50 mg 50 mg PO QDAY #30 tabs 06/01/24 06/01/24 Rx tablet,extended release 24 hr Ejection fraction %: 65 Have you fallen in the past year?: No PFSH Medical History Tachycardia Family History Mother Rodrigo's angina Hypertension Grandfather Cancer Grandmother Heart disease Myocardial infarction Social History Smoking Status: Never smoker alcohol intake: never substance use type: does not use caffeine: Yes ROS Const Const: Positive for fatigue; Negative for weakness ENT ENT: Negative for dizziness or balance problems Cardio Chest Pain: Yes (pressure and tightness, occasional stab) Palpitations: Yes Edema: Bilateral (puffy pockets on ankles per pt) Muscle aches with walking: None Resp Respiratory: Positive for SOB with activity; Negative for SOB at rest or SOB orthopnea SOB lying down GI GI: Negative nausea, vomiting or heartburn Musc Musc: Negative for muscle weakness or balance problems Neuro Neuro: Negative for dizziness, lightheadedness, near syncope, syncope or weakness Endo Endo: Positive for fatigue Cardiology Exam Const Appearance: cooperative, healthy appearing, comfortable, no acute distress, well developed and well groomed Head Head: normal to inspection E (more content not included)... Normal [facility] 12 Lead EKGon 05-25-2024 12 Lead EKG [facility] Cardi[facility] Services [address] [place] [address] 12 Lead EKG 05/25/24 1104 MR#: [id number] Acct: [id number] Name: EILEEN STUART Rep #: [id number] : 1985 39 From: Per Isaac MD Attending Dr: Status: DEP ER Ordering Dr: Clem Gusman NP-C Date: 05/25/24 Location: ED Sex: F C Admitted: Test Reason : CHEST PAIN Blood Pressure : / mmHG Vent. Rate : 062 BPM Atrial Rate : 062 BPM P-R Int : 138 ms QRS Dur : 078 ms QT Int : 412 ms P-R-T Axes : 050 049 036 degrees QTc Int : 418 ms Normal sinus rhythm Nonspecific T wave abnormality Abnormal ECG Confirmed by PER ISAAC MD ([id number]), assistant editor LIDIA COVINGTON ([id number]) on 05/29/2024 6:53:59 AM Referred By: Confirmed By:PER ISAAC MD 05/29/24 0654 Date Per Isaac MD CC: GENERATOR MAN-C Clem Gusman; Dr. Clarissa Roy MD; Dr. Jason Spangler DO Signed Normal [facility] CBC W/Diff, Automatedon 09-0 Absolute Lymph 2.04 X10 3/uL Normal 0.83-4.51 [facility] Comment on above: Performed By: #### L 501.2450, L501.4020, L100.0100, L500.4050 ####[facility] [address] [place], [address] Absolute Neut 3.4 X10 3/uL Normal 2.0-7.7 [facility] Comment on above: Performed By: #### L 501.2450, L501.4020, L100.0100, L500.4050 ####[facility] [address] [place], [address] Basophils/100 WBC (Bld) 0.7 % Normal 0-1 [facility] Comment on above: Performed By: #### L 501.2450, L501.4020, L100.0100, L500.4050 ####[facility] [address] [place], [address] Eosinophils/100 WBC (Bld) 2.3 % Normal 0-5 [facility] Comment on above: Performed By: #### L 501.2450, L501.4020, L100.0100, L500.4050 ####[facility] [address] [place], [address] Erythrocyte distribution width (RBC) [Ratio] 12.9 % Normal 11.6-14.6 [facility] Comment on above: Performed By: #### L 501.2450, L501.4020, L100.0100, L500.4050 ####[facility] [address] [place], [address] Hematocrit (Bld) [Volume fraction] 34.3 % Low 37-47 [facility] Comment on above: Performed By: #### L 501.2450, L501.4020, L100.0100, L500.4050 ####[facility] [address] [place], [address] Hemoglobin (Bld) [Mass/Vol] 10.6 g/dL Low 12.0-15.0 [facility] Comment on above: Performed By: #### L 501.2450, L501.4020, L100.0100, L500.4050 ####[facility] [address] [place], [address] IG% 0.300 Normal 0.0-0.9 [facility] Comment on above: Result Comment: IG% - Immature Granulocytes (promyelocytes, myelocytes and metamyelocytes) > 1% indicates that a LEFT SHIFT is Present. Performed By: #### L 501.2450, L501.4020, L100.0100, L500.4050 ####[facility] [address] [place], [address] Lymphocytes/100 WBC (Bld) 33.3 % Normal 19-41 [facility] Comment on above: Performed By: #### L 501.2450, L501.4020, L100.0100, L500.4050 ####[facility] [address] [place], [address] MCH (RBC) [Entitic mass] 25.9 pg Low 27.0-32.0 [facility] Comment on above: Performed By: #### L 501.2450, L501.4020, L100.0100, L500.4050 ####[facility] [address] [place], [address] MCHC (RBC) [Mass/Vol] 30.9 g/dL Low 32-36 [facility] Comment on above: Performed By: #### L 501.2450, L501.4020, L100.0100, L500.4050 ####[facility] [address] [place], [address] MCV (RBC) [Entitic vol] 83.9 fL Normal 81-99 [facility] Comment on above: Performed By: #### L 501.2450, L501.4020, L100.0100, L500.4050 ####[facility] [address] [place], [address] Monocytes/100 WBC (Bld) 7.4 % Normal 0-10 [facility] Comment on above: Performed By: #### L 501.2450, L501.4020, L100.0100, L500.4050 ####[facility] [address] [place], [address] Neutrophils/100 WBC (Bld) 56.0 % Normal 47-70 [facility] Comment on above: Performed By: #### L 501.2450, L501.4020, L100.0100, L500.4050 ####[facility] [address] [place], [address] Nucleated RBC (Bld) [#/Vol] 0 10*3/uL Normal 0-5 [facility] Comment on above: Performed By: #### L 501.2450, L501.4020, L100.0100, L500.4050 ####[facility] [address] [place], [address] Platelet mean volume (Bld) [Entitic vol] 11.0 fL Normal 6.2-12.0 [facility] Comment on above: Performed By: #### L 501.2450, L501.4020, L100.0100, L500.4050 ####[facility] [address] [place], [address] Platelets (Bld) [#/Vol] 288 10*3/uL Normal 150-450 [facility] Comment on above: Performed By: #### L 501.2450, L501.4020, L100.0100, L500.4050 ####[facility] [address] [place], [address] RBC (Bld) [#/Vol] 4.09 10*6/uL Low 4.2-5.4 [facility] Comment on above: Performed By: #### L 501.2450, L501.4020, L100.0100, L500.4050 ####[facility] [address] [place], [address] RDW SD 39.5 fl Normal 35.1-43.9 [facility] Comment on above: Performed By: #### L 501.2450, L501.4020, L100.0100, L500.4050 ####[facility] [address] [place], [address] WBC (Bld) [#/Vol] 6.1 10*3/uL Normal 4.4-11.0 [facility] Comment on above: Performed By: #### L 501.2450, L501.4020, L100.0100, L500.4050 ####[facility] [address] [place], [address] Chest PA and Lateralon 05-25 Chest PA and Lateral [facility] Imaging Services [address] [place] [address] Chest PA and Lateral MR#: [id number] Acct: [id number] Name: EILEEN STUART Rep #: [id number] : 1985 F 39 From: Miguel ochoa MD PCP: Dr. Clarissa Roy MD Status: PRE ER Study: Chest PA and Lateral Date of Exam: 05/25/24 Exam# [id number] Ordering Dr: Clem Gusman GENERATOR MAN-C [id number] STUDY: X-RAY CHEST REASON FOR EXAM: Female, 39 years old. Chest pain TECHNIQUE: PA and lateral views of the chest. COMPARISON: Comparison is made with prior study of November 11, 2023. FINDINGS: EKG adenosine The lungs are clear and expanded. There is no demonstrated pleural abnormality. Normal size heart. Normal mediastinum and oscar. Normal visualized pulmonary arteries. Normal visualized aortic arch and descending thoracic aorta. Normal visualized thoracic spine. Normal visualized ribs, clavicles, and shoulders. There is no demonstrated abnormality of the visualized soft tissue structures of the upper abdomen. RAD/Chest PA and Lateral IMPRESSION: Normal x-ray examination of the chest. Electronically Signed: Miguel Medel MD at 11:47 EDT , CC: TEZ Gusman; Dr. Clarissa Roy MD Mass Spectrometry Specialist: Signed Normal [facility] Comprehensive Metabolic Prof ilon 05-25-2024 Albumin [Mass/Vol] 3.6 g/dL Normal 3.2-5.0 [facility] Comment on above: Order Comment: 'TROP ' Serial specimen #1, #2 or #3: 1 Performed By: #### L 501.2450, L501.4020, L100.0100, L500.4050 ####[facility] [address] [place], [address] Albumin/Globulin [Mass ratio] 0.9 {ratio} Normal 0.9-2.4 [facility] Comment on above: Order Comment: 'TROP ' Serial specimen #1, #2 or #3: 1 Performed By: #### L 501.2450, L501.4020, L100.0100, L500.4050 ####[facility] [address] [place], [address] ALK P 52 U/L Normal 45-117 [facility] Comment on above: Order Comment: 'TROP ' Serial specimen #1, #2 or #3: 1 Performed By: #### L 501.2450, L501.4020, L100.0100, L500.4050 ####[facility] [address] [place], [address] ALT [Catalytic activity/Vol] 37 U/L Normal 13-56 [facility] Comment on above: Order Comment: 'TROP ' Serial specimen #1, #2 or #3: 1 Performed By: #### L 501.2450, L501.4020, L100.0100, L500.4050 ####[facility] [address] [place], [address] AST [Catalytic activity/Vol] 27 U/L Normal 15-37 [facility] Comment on above: Order Comment: 'TROP ' Serial specimen #1, #2 or #3: 1 Performed By: #### L 501.2450, L501.4020, L100.0100, L500.4050 ####[facility] [address] [place], [address] Bilirubin [Mass/Vol] 0.20 mg/dL Normal 0.20-1.00 [facility] Comment on above: Order Comment: 'TROP ' Serial specimen #1, #2 or #3: 1 Result Comment: For patients on eltrombopag therapy, use of Dimension [place] TBIL is not recommended. Performed By: #### L 501.2450, L501.4020, L100.0100, L500.4050 ####[facility] [address] [place], [address] BUN/CRE 14.6 RATIO Normal 10-20 [facility] Comment on above: Order Comment: 'TROP ' Serial specimen #1, #2 or #3: 1 Performed By: #### L 501.2450, L501.4020, L100.0100, L500.4050 ####[facility] [address] [place], [address] CA,Total 9.1 mg/dL Normal 8.5-10.1 [facility] Comment on above: Order Comment: 'TROP ' Serial specimen #1, #2 or #3: 1 Performed By: #### L 501.2450, L501.4020, L100.0100, L500.4050 ####[facility] [address] [place], [address] Chloride [Moles/Vol] 109 mmol/L High 98-107 [facility] Comment on above: Order Comment: 'TROP ' Serial specimen #1, #2 or #3: 1 Performed By: #### L 501.2450, L501.4020, L100.0100, L500.4050 ####[facility] [address] [place], [address] CO2 [Moles/Vol] 26.0 mmol/L Normal 21.0-32.0 [facility] Comment on above: Order Comment: 'TROP ' Serial specimen #1, #2 or #3: 1 Performed By: #### L 501.2450, L501.4020, L100.0100, L500.4050 ####[facility] [address] [place], [address] Creatinine [Mass/Vol] 0.82 mg/dL Normal 0.55-1.02 [facility] Comment on above: Order Comment: 'TROP ' Serial specimen #1, #2 or #3: 1 Result Comment: The validity of the calculated GFR GFRAA in patients over 70 years has not been determined. Clinical correlation is essential. Performed By: #### L 501.2450, L501.4020, L100.0100, L500.4050 ####[facility] [address] [place], [address] EST GFR - AA 99 mL/min Normal >60 [facility] Comment on above: Order Comment: 'TROP ' Serial specimen #1, #2 or #3: 1 Result Comment: Afri can [place] GFR Calc Performed By: #### L 501.2450, L501.4020, L100.0100, L500.4050 ####[facility] [address] [place], [address] GAP 5 Normal 5-15 [facility] Comment on above: Order Comment: 'TROP ' Serial specimen #1, #2 or #3: 1 Performed By: #### L 501.2450, L501.4020, L100.0100, L500.4050 ####[facility] [address] [place], [address] GFR/1.73 sq M.predicted among non-blacks MDRD (S/P/Bld) [Vol rate/Area] 82 mL/min/{1.73_m2} Normal >60 [facility] Comment on above: Order Comment: 'TROP ' Serial specimen #1, #2 or #3: 1 Result Comment: Non- GFR Calc Performed By: #### L 501.2450, L501.4020, L100.0100, L500.4050 ####[facility] [address] [place], [address] Globulin (S) [Mass/Vol] 3.9 g/dL Normal 2.2-4.2 [facility] Comment on above: Order Comment: 'TROP ' Serial specimen #1, #2 or #3: 1 Performed By: #### L 501.2450, L501.4020, L100.0100, L500.4050 ####[facility] [address] [place], [address] Glucose [Mass/Vol] 88 mg/dL Normal 74-106 [facility] Comment on above: Order Comment: 'TROP ' Serial specimen #1, #2 or #3: 1 Performed By: #### L 501.2450, L501.4020, L100.0100, L500.4050 ####[facility] [address] [place], [address] Potassium [Moles/Vol] 4.0 mmol/L Normal 3.5-5.1 [facility] Comment on above: Order Comment: 'TROP ' Serial specimen #1, #2 or #3: 1 Performed By: #### L 501.2450, L501.4020, L100.0100, L500.4050 ####[facility] [address] [place], [address] Sodium [Moles/Vol] 140 mmol/L Normal 136-145 [facility] Comment on above: Order Comment: 'TROP ' Serial specimen #1, #2 or #3: 1 Performed By: #### L 501.2450, L501.4020, L100.0100, L500.4050 ####[facility] [address] [place], [address] T PROT 7.5 g/dL Normal 6.4-8.2 [facility] Comment on above: Order Comment: 'TROP ' Serial specimen #1, #2 or #3: 1 Performed By: #### L 501.2450, L501.4020, L100.0100, L500.4050 ####[facility] [address] [place], [address] Urea nitrogen [Mass/Vol] 12 mg/dL Normal 7-18 [facility] Comment on above: Order Comment: 'TROP ' Serial specimen #1, #2 or #3: 1 Performed By: #### L 501.2450, L501.4020, L100.0100, L500.4050 ####[facility] [address] [place], [address] Emergency Department Summary on 05-25-2024 Emergency Department Summary [facility] Medical Records Department [address] [place] [address] Emergency Department Summary 05/25/24 MR#: [id number] Acct: [id number] Name: EILEEN STUART Rep #: [id number] : 1985 39 From: Jason Spangler DO PCP: Dr. Clarissa Roy MD Status:DEP ER Location: ED Patient was seen and examined with nurse practitioner all All components of the history and physical confirmed and agreed. History of present illness and physical exam: Patient is a 39-year-old female with no known significant past medical history who presented to the emergency department chief complaint of chest pain. Patient states that she has had chest pain on and off now for several weeks has been following up with her primary care physician who referred her to cardiology. She states that she just recently completed a Holter monitor. She states that the last 4 days she has have had pain every single day which she normally does not have pain every single day. States that the pain will come and go nothing makes this better or worse. Patient states that she has not had any history of blood clots in her legs or lungs denies any recent travel history. Denies any recent sick contacts. She states today that she called the programmer engineering and scientific office who ultimately referred her to here to the emergency department. Review of systems: Agree with above Physical exam: Agree with above MDM Patient is a 39-year-old female who presented to the emerged part with a chief complaint of chest pain the past 4 days. Patient will have a workup performed here on the differential diagnose includes but not limited to ACS, GERD, pericarditis. Once workup is obtained and reviewed she will be reevaluated. Patient CBC was largely unremarkable with no evidence of leukocytosis white blood count normal at 6.1, hemoglobin stable 10.6, platelet count normal at 288. Patient's AST and ALT were 27 and 37 respectively, troponin was less than 3. Patient's urinalysis did not reveal any evidence of infection and had a negative test. Patient's x-ray of her chest showed no acute cardiopulmonary processes. Patient's EKG was reviewed and showed sinus rhythm with a rate of 62 bpm. Patient had a bedside echocardiogram performed no pericardial effusions noted ejection fraction appeared to be normal. At this point time did discuss the results with the patient and she is advised to keep a blood pressure log and take this to her primary care physician to see if she needs an antihypertensive. Patient was also encouraged to follow-up with her programmer engineering and scientific in outpatient setting. She was encouraged return with worsening symptoms or other concerns. She is agreeable with the plan as well as her significant other at bedside all question concerns answered she was discharged home in stable condition. Final impression: Chest pain Disposition: Patient will be discharged home in stable condition Supervising attending attestation: Jason PEÑALOZA History of Present Illness Chief Complaint: Chest Pain Narrative Narrative: Patient is a 39-year-old female who does not take any prescription medications only vitamins presenting to the emergency department for chest pain. Patient states that she has been having chest pain on and off for multiple weeks, she has seen her PCP who referred her to cardiology. Patient did have a Holter monitor placed. Patient states the pain comes and goes however what concerned her is for the last 4 days she has been having pain every day. This is not constant, it does not coincide with any walking or exertion. Patient dates she just be sitting there and it happened. She denies any pain today however she called the programmer engineering and scientific office who referred her to the the [facility] apartment. Denies any history of PE, DVT, denies any recent travel. Denies any recent surgery. [facility] Medical History (Updated 05/25/24 @ 12:55 by TEZ Alexander) Tachycardia Home Medications ???Medication ???Instructions ???Recorded ???Last Taken ???Type NK 11/11/23 Unknown History Allergy/AdvReac Type Severity Reaction Status Date / Time No Known Allergies Allergy Verified 05/25/24 10:49 Family History (Updated 05/23/24 @ 14:20 by Christiana Dobbins RN) Mother Rodrigo's angina Hypertension Grandfather Cancer Social History Smoking Status: Never smoker ROS ROS ED ROS Narrative Constitutional: Negative for fever, chills, weight loss, weakness Eyes: Negative for vision loss, vision change, double vision ENT: Negative for any sore throat, ear pain, congestion Cardiovascular: Negative for any tightness, palpitations. Positive for chest pain Respiratory: Negative for any cough, sputum production, hemoptysis, dyspnea, dyspnea on exertion, orthopnea Gastrointesti (more content not included)... Normal [facility] L501.4020on 05-25-2024 TROPONIN-I HS < 3 Low 3.0-54.0 [facility] Comment on above: Order Comment: 'TROP ' Serial specimen #1, #2 or #3: 1 Result Comment: Plea se Note: New Test Units and Gender Specific Reference Ranges. For more information see Policy Stat Procedure [place] High Sensitivity Troponin (TNIH) and attachments. Performed By: #### L 501.2450, L501.4020, L100.0100, L500.4050 ####[facility] [address] [place], [address] Lipaseon 05-25-2024 Lipase [Catalytic activity/Vol] 51 U/L Normal 13-75 [facility] Comment on above: Order Comment: 'TROP ' Serial specimen #1, #2 or #3: 1 Result Comment: Plea se note: LIPASE revised reference range effective 22. New Lipase methodology. Expected to produce lower values than the previous assay method. NEW Reference Range: 13 - 75 U/L Performed By: #### L 501.2450, L501.4020, L100.0100, L500.4050 ####[facility] [address] [place], [address] ,Urineon 05-25-2024 Beta HCG ( test) Ql (U) Negative Normal [facility] Comment on above: Order Comment: CLEAN CATCH Result Comment: Very dilute urine specimens, as indicated by a low specific gravity, may not contain client relations representative levels of hCG. If is still suspected, a first morning urine specimen should be collected 48 hours later and tested. Performed By: #### L 400.7600, L400.0001 ####[facility] [address] [place], [address] Urinalysis, Completeon 05-25 EPI,SQUAMOUS 0-5 SEEN Normal 5-10 [facility] Comment on above: Order Comment: CLEAN CATCH Performed By: #### L 400.7600, L400.0001 ####[facility] [address] [place], [address] BACTERIA 0 SEEN Normal None Seen [facility] Comment on above: Order Comment: CLEAN CATCH Performed By: #### L 400.7600, L400.0001 ####[facility] [address] [place], [address] Mucus Ql (Urine sed) 0 SEEN Normal [facility] Comment on above: Order Comment: CLEAN CATCH Performed By: #### L 400.7600, L400.0001 ####[facility] [address] [place], [address] RBC 0 SEEN Normal 0-5 [facility] Comment on above: Order Comment: CLEAN CATCH Performed By: #### L 400.7600, L400.0001 ####[facility] [address] [place], [address] WBC 0 SEEN Normal 0-5 [facility] Comment on above: Order Comment: CLEAN CATCH Performed By: #### L 400.7600, L400.0001 ####[facility] [address] [place], [address] Echo Completeon 04-07-2024 Echo Complete [facility] Cardiovascular Services [address] [place] [address] Echo Complete 04/07/24 1358 MR#: [id number] Acct: [id number] Name: EILEEN STUART Rep #: [id number] : 1985 39 From: Lyndsey Isidro MD Attending Dr: Dr. Clarissa Roy MD Status: [facility] Ordering Dr: Clarissa Roy MD Date: 04/07/24 Location: [facility] Sex: F C Admitted: Reason For Study: ELEVATED BLOOD PRESSURE Procedure This was a 2D Doppler, Color Flow transthoracic echocardiogram. Exam performed in department. Left Ventricle Normal size and thickness. The left ventricular ejection fraction is 65 %. Normal diastology for age. Right Ventricle Normal right ventricle. Atria The left and right atria are normal. Mitral Valve Trivial mitral valve insufficiency. Tricuspid Valve Trivial tricuspid valve insufficiency. Unable to estimate RV systolic pressure due to insufficient tricuspid regurgitant envelope. Aortic Valve Trisinus/trileaflet aortic valve. Pulmonic Valve Mild (1+) pulmonic valve insufficiency. Great Vessels Normal sized aortic root. Pericardium/Pleural No pericardial effusion. MMode/2D Measurements Calculations LVIDd: 4.4 cm IVSd: 1.0 cm LVOT diam: 2.2 cm LVIDs: 3.0 cm LVPWd: 0.93 cm LVOT area: 3.6 cm2 RVDd: 2.6 cm FS: 30.8 % Ao root diam: 2.8 cm LAV(MOD-bp): 40.6 ml LVAd ap4: 22.7 cm2 LAV(MOD-bp) Indexed: 23.4 ml/m2 LVLd ap4: 7.9 cm LAV(MOD-sp2): 47.5 ml EDV(MOD-sp4): 55.0 ml LAV(MOD-sp4): 33.3 ml EDV(sp4-el): 55.4 ml LVAs ap4: 12.1 cm2 LVLs ap4: 6.4 cm ESV(MOD-sp4): 19.4 ml ESV(sp4-el): 19.3 ml EF(MOD-sp4): 64.7 % EF(sp4-el): 65.2 % LVAd ap2: 25.5 cm2 SV(MOD-sp4): 35.6 ml SV(MOD-sp2): 45.6 ml LVLd ap2: 8.3 cm EDV(MOD-sp2): 67.2 ml EDV(sp2-el): 66.4 ml LVAs ap2: 12.3 cm2 LVLs ap2: 6.1 cm ESV(MOD-sp2): 21.7 ml ESV(sp2-el): 21.1 ml EF(MOD-sp2): 67.8 % SV(sp4-el): 36.1 ml LA dimension(2D): 3.4 cm LA A4 area: 14.4 cm2 RA A4 area: 9.0 cm2 TAPSE: 1.9 cm Time Measurements MV dec time: 0.16 sec Doppler Measurements Calculations MV E max og: 82.3 cm/sec Lat Peak E' Og: 15.8 cm/sec Med Peak E' Og: 11.2 cm/sec MV A max og: 66.4 cm/sec E/E' lat: 5.2 E/E' med: 7.4 MV E/A: 1.2 Ao V2 max: 128.4 cm/sec LV V1 max: 109.5 cm/sec MV dec slope: 522.3 cm/sec2 Ao max P.6 mmHg LV V1 max P.8 mmHg Ao V2 mean: 91.1 cm/sec LV V1 mean P.7 mmHg Ao mean P.7 mmHg LV V1 mean: 76.3 cm/sec Ao V2 VTI: 27.6 cm LV V1 VTI: 23.5 cm AV (velocity ratio): 0.85 MARY(I,D): 3.1 cm2 MARY(V,D): 3.1 cm2 SV(LVOT): 85.6 ml PA V2 max: 90.5 cm/sec PI end-d og: 86.8 cm/sec PA max PG (full): 1.6 mmHg ECHO/Echo Complete Interpretation Summary The left ventricular ejection fraction is 65 %. Mild (1+) pulmonic valve insufficiency. Ordering Physician: Clarissa Roy Referring Physician: Clarissa Roy Performed By: Felicita Dalton [facility] 04/07/24 1431 Date Lyndsey Isidro MD CC: Dr. Clarissa Roy MD Date Dictated: 04/07/24 1358 Date Transcribed: 04/07/24 1431 Mass Spectrometry Specialist: Signed Normal [facility] 12 Lead EKGon 11-11-2023 12 Lead EKG [facility] Cardiovascular Services [address] [place] [address] 12 Lead EKG 11/11/23 1430 MR#: [id number] Acct: [id number] Name: EILEEN STUART Rep #: [id number] : 1985 38 From: Per Isaac MD Attending Dr: Status: DEP ER Ordering Dr: Carmelina Gilliland MD Date: 11/11/23 Location: ED Sex: F C Admitted: Test Reason : CHEST DISCOMFORT Blood Pressure : / mmHG Vent. Rate : 075 BPM Atrial Rate : 075 BPM P-R Int : 142 ms QRS Dur : 082 ms QT Int : 380 ms P-R-T Axes : 052 039 002 degrees QTc Int : 424 ms Normal sinus rhythm Nonspecific T wave abnormality Abnormal ECG Confirmed by MONI TAO, PER ([id number]), assistant editor YAMILET SINGH ([id number]) on 11/12/2023 1:05:27 PM Referred By: Confirmed By:PER ISAAC MD 11/12/23 1305 Date Per Isaac MD CC: Dr. Carmelina Gilliland MD; No Primary Care Physician Signed Normal [facility] Absolute lymphocyte countOrd ered By: Carmelina Gilliland on 11-11-2023 Lymphocytes Auto (Unsp spec) [#/Vol] 1.68 10*3/uL 0.83-4.51 [facility] Automated lymphocyte count a s percentage of total leukocytesOrdered By: Carmelina Gilliland on 11-11-2023 Lymphocytes/100 WBC Auto (Unsp spec) 27.9 % 19-41 [facility] Basic Metabolic Profile (BMP )on 11-11-2023 BUN/CRE 15.9 RATIO Normal 10-20 [facility] Comment on above: Order Comment: 1 Y Performed By: #### L 100.0100, L501.5425, L500.2500 #### [facility] Laboratory [address] [place], [place], [id number] CA,Total 8.9 mg/dL Normal 8.5-10.1 [facility] Comment on above: Order Comment: 1 Y Performed By: #### L 100.0100, L501.5425, L500.2500 #### [facility] Laboratory [address] [place], [address] Chloride [Moles/Vol] 109 mmol/L High 98-107 [facility] Comment on above: Order Comment: 1 Y Performed By: #### L 100.0100, L501.5425, L500.2500 #### [facility] [address] [place], [address] CO2 [Moles/Vol] 25.0 mmol/L Normal 21.0-32.0 [facility] Comment on above: Order Comment: 1 Y Performed By: #### L 100.0100, L501.5425, L500.2500 #### [facility] [address] [place], [address] Creatinine [Mass/Vol] 0.88 mg/dL Normal 0.55-1.02 [facility] Comment on above: Order Comment: 1 Y Result Comment: The validity of the calculated GFR GFRAA in patients over 70 years has not been determined. Clinical correlation is essential. Performed By: #### L 100.0100, L501.5425, L500.2500 #### [facility] [address] [place], [address] ECRCL 81.69 ml/min Normal [facility] Comment on above: Order Comment: 1 Y Performed By: #### L 100.0100, L501.5425, L500.2500 #### [facility] [address] [place], [address] EST GFR - AA 92 mL/min Normal >60 [facility] Comment on above: Order Comment: 1 Y Result Comment: Afri can [place] GFR Calc Performed By: #### L 100.0100, L501.5425, L500.2500 #### [facility] [address] [place], [address] GAP 4 Low 5-15 [facility] Comment on above: Order Comment: 1 Y Performed By: #### L 100.0100, L501.5425, L500.2500 #### [facility] [address] [place], [address] GFR/1.73 sq M.predicted among non-blacks MDRD (S/P/Bld) [Vol rate/Area] 76 mL/min/{1.73_m2} Normal >60 [facility] Comment on above: Order Comment: 1 Y Result Comment: Non- GFR Calc Performed By: #### L 100.0100, L501.5425, L500.2500 #### [facility] [address] [place], [address] Glucose [Mass/Vol] 96 mg/dL Normal 74-106 [facility] Comment on above: Order Comment: 1 Y Performed By: #### L 100.0100, L501.5425, L500.2500 #### [facility] [address] [place], [address] Potassium [Moles/Vol] 3.5 mmol/L Normal 3.5-5.1 [facility] Comment on above: Order Comment: 1 Y Performed By: #### L 100.0100, L501.5425, L500.2500 #### [facility] [address] [place], [address] Sodium [Moles/Vol] 138 mmol/L Normal 136-145 [facility] Comment on above: Order Comment: 1 Y Performed By: #### L 100.0100, L501.5425, L500.2500 #### [facility] [address] [place], [address] Urea nitrogen [Mass/Vol] 14 mg/dL Normal 7-18 [facility] Comment on above: Order Comment: 1 Y Performed By: #### L 100.0100, L501.5425, L500.2500 #### [facility] [address] [place], [address] Basophil percentageOrdered B y: Carmelina Gilliland on 11-11-2023 Basophil percentage 0 SEEN /hpf 0-5 [facility] Basophils/100 WBC (Bld) 0.5 % 0-1 [facility] Chloride [Moles/Vol] 109 mmol/L 98-107 [facility] Eosinophils/100 WBC (Bld) 0.8 % 0-5 [facility] Glucose [Mass/Vol] 96 mg/dL 74-106 [facility] Hemoglobin (Bld) [Mass/Vol] 12.4 g/dL 12.0-15.0 [facility] Monocytes/100 WBC (Bld) 6.3 % 0-10 [facility] Neutrophils (Bld) [#/Vol] 3.9 10*3/uL 2.0-7.7 [facility] Neutrophils/100 WBC (Bld) 64.2 % 47-70 [facility] Potassium [Moles/Vol] 3.5 mmol/L 3.5-5.1 [facility] Sodium [Moles/Vol] 138 mmol/L 136-145 [facility] WBC (Bld) [#/Vol] 6.0 10*3/uL 4.4-11.0 [facility] Bilirubin Test strip Ql (U)O rdered By: Carmelina Gilliland on 11-11-2023 Bilirubin Ql (U) Negative Negative [facility] CBC W/Diff, Automatedon 10-22 Absolute Lymph 1.68 X10 3/uL Normal 0.83-4.51 [facility] Comment on above: Performed By: #### L 100.0100, L501.5425, L500.2500 #### [facility] [address] [place], [address] Absolute Neut 3.9 X10 3/uL Normal 2.0-7.7 [facility] Comment on above: Performed By: #### L 100.0100, L501.5425, L500.2500 #### [facility] [address] [place], [address] Basophils/100 WBC (Bld) 0.5 % Normal 0-1 [facility] Comment on above: Performed By: #### L 100.0100, L501.5425, L500.2500 #### [facility] [address] [place], [address] Eosinophils/100 WBC (Bld) 0.8 % Normal 0-5 [facility] Comment on above: Performed By: #### L 100.0100, L501.5425, L500.2500 #### [facility] [address] [place], [address] Erythrocyte distribution width (RBC) [Ratio] 12.3 % Normal 11.6-14.6 [facility] Comment on above: Performed By: #### L 100.0100, L501.5425, L500.2500 #### [facility] [address] [place], [address] Hematocrit (Bld) [Volume fraction] 37.2 % Normal 37-47 [facility] Comment on above: Performed By: #### L 100.0100, L501.5425, L500.2500 #### [facility] [address] [place], [address] Hemoglobin (Bld) [Mass/Vol] 12.4 g/dL Normal 12.0-15.0 [facility] Comment on above: Performed By: #### L 100.0100, L501.5425, L500.2500 #### [facility] [address] [place], [address] IG% 0.300 Normal 0.0-0.9 [facility] Comment on above: Result Comment: IG% - Immature Granulocytes (promyelocytes, myelocytes and metamyelocytes) > 1% indicates that a LEFT SHIFT is Present. Performed By: #### L 100.0100, L501.5425, L500.2500 #### [facility] [address] [place], [address] Lymphocytes/100 WBC (Bld) 27.9 % Normal 19-41 [facility] Comment on above: Performed By: #### L 100.0100, L501.5425, L500.2500 #### [facility] [address] [place], [address] MCH (RBC) [Entitic mass] 30.4 pg Normal 27.0-32.0 [facility] Comment on above: Performed By: #### L 100.0100, L501.5425, L500.2500 #### [facility] [address] [place], [address] MCHC (RBC) [Mass/Vol] 33.3 g/dL Normal 32-36 [facility] Comment on above: Performed By: #### L 100.0100, L501.5425, L500.2500 #### [facility] [address] [place], [address] MCV (RBC) [Entitic vol] 91.2 fL Normal 81-99 [facility] Comment on above: Performed By: #### L 100.0100, L501.5425, L500.2500 #### [facility] [address] [place], [address] Monocytes/100 WBC (Bld) 6.3 % Normal 0-10 [facility] Comment on above: Performed By: #### L 100.0100, L501.5425, L500.2500 #### [facility] [address] [place], [address] Neutrophils/100 WBC (Bld) 64.2 % Normal 47-70 [facility] Comment on above: Performed By: #### L 100.0100, L501.5425, L500.2500 #### [facility] [address] [place], [address] Nucleated RBC (Bld) [#/Vol] 0 10*3/uL Normal 0-5 [facility] Comment on above: Performed By: #### L 100.0100, L501.5425, L500.2500 #### [facility] [address] [place], [address] Platelet mean volume (Bld) [Entitic vol] 10.3 fL Normal 6.2-12.0 [facility] Comment on above: Performed By: #### L 100.0100, L501.5425, L500.2500 #### [facility] [address] [place], [address] Platelets (Bld) [#/Vol] 262 10*3/uL Normal 150-450 [facility] Comment on above: Performed By: #### L 100.0100, L501.5425, L500.2500 #### [facility] [address] [place], [address] RBC (Bld) [#/Vol] 4.08 10*6/uL Low 4.2-5.4 [facility] Comment on above: Performed By: #### L 100.0100, L501.5425, L500.2500 #### [facility] [address] [place], [address] RDW SD 40.7 fl Normal 35.1-43.9 [facility] Comment on above: Performed By: #### L 100.0100, L501.5425, L500.2500 #### [facility] [address] [place], [address] WBC (Bld) [#/Vol] 6.0 10*3/uL Normal 4.4-11.0 [facility] Comment on above: Performed By: #### L 100.0100, L501.5425, L500.2500 #### [facility] [address] [place], [address] Chest 1 View (Portable)on Chest 1 View (Portable) [facility] Imaging Services [address] [place] [address] Chest 1 View (Portable) MR#: [id number] Acct: [id number] Name: EILEEN STUART Rep #: [id number] : 1985 F 38 From: Miguel ochoa MD PCP: Care Physician,No Primary Status: REG ER Study: Chest 1 View (Portable) Date of Exam: 11/11/23 Exam# [id number] Ordering Dr: [place] [id number] STUDY: X-RAY CHEST REASON FOR EXAM: Female, 38 years old. cp TECHNIQUE: Single AP portable view of the chest. COMPARISON: None. FINDINGS: EKG electrodes are seen. The lungs are clear and expanded. There is no demonstrated pleural abnormality. Normal size heart. Normal mediastinum and oscar. Normal visualized pulmonary arteries. Normal visualized aortic arch and descending thoracic aorta. Normal visualized thoracic spine. Normal visualized ribs, clavicles, and shoulders. There is no demonstrated abnormality of the visualized soft tissue structures of the upper abdomen. RAD/Chest 1 View (Portable) IMPRESSION: Normal x-ray examination of the chest. Electronically Signed: Miguel Medel MD at 15:25 EST , CC: Dr. Carmelina Gilliland MD; No Primary Care Physician Mass Spectrometry Specialist: Signed Normal [facility] Determination of erythrocyte mean corpuscular volume (MCV)Ordered By: Carmelina Gilliland on 11-11-2023 MCV (RBC) [Entitic vol] 91.2 fL 81-99 [facility] Emergency Department Summary on 11-11-2023 Emergency Department Summary [facility] Medical Records Department [address] [place] [address] Emergency Department Summary 11/11/23 MR#: [id number] Acct: [id number] Name: EILEEN STUART Rep #: [id number] : 1985 38 From: Carmelina Gilliland MD PCP: Care Physician,No Primary Status:DEP ER Location: ED HPI History of Present Illness Chief Complaint: Chest Pain Informant: patient Onset/Context/Timing Onset: Weeks Timing: Waxes and wanes Narrative Narrative: Patient presents secondary to hypertension and chest pressure. She has been monitoring her blood pressures at home. In late September she was running high for several days but seem to calm down in early October. Since November 02 she has had higher blood pressure readings again in the 140s to 170s systolic. She made an appointment to establish a new primary care physician at [facility] and has an appointment next week. Today she developed some chest pressure so she comes in for evaluation. PFSH PFSH Medical History no medical history no medical history Home Medications NK 11/11/23 [History Last Taken Unknown] Allergy/AdvReac Type Severity Reaction Status Date / Time No Known Allergies Allergy Verified 11/11/23 14:24 Surgical History no surgical history Social History Smoking Status: Never smoker ROS ROS ED Constitutional Constitutional ED: Denies chills or fever(s) Eyes Eyes: Denies change in vision ENT ENT ED: Denies rhinorrhea or sore throat Cardiovascular Cardiovascular: Reports chest pain; Denies palpitations Respiratory/Chest Respiratory/Chest: Denies cough or dyspnea Gastrointestinal Gastrointestinal: Denies abdominal pain, nausea or vomiting Genitourinary Genitourinary ED: Denies dysuria Musculoskeletal Musculoskeletal: Denies back pain or extremity pain Integumentary Denies Abrasions or rash Neurologic Neurologic: Denies headache(s) or weakness Psychiatric Psychiatric: Denies anxiety or depression Allergic/Immunologic Allergic/Immunologic ED: Denies lip swelling or urticaria EXAM Physical Exam Const Vital Signs: 11/11/23 14:24 11/11/23 14:45 Temperature 98.2 F Temperature Source Temporal Pulse Rate 79 Respiratory Rate 16 Blood Pressure 177/110 H 161/100 H Blood Pressure Mean 132 120 Pulse Ox 100 Oxygen Delivery Method Room Air Positive well nourished and well developed General Appearance ED: well developed HEENT Reports moist mucous membranes Eyes EOMs intact bilaterally Chest Wall inspection of chest normal and palpation of chest normal Resp normal respiratory effort and clear to auscultation bilaterally Cardio regular rate and regular rhythm GI non-tender Palpation: soft Extremity normal to inspection Neuro oriented x3 and no sensory deficits noted Motor Exam: strength 5/5 throughout Psych mental status grossly normal Skin no rashes or lesions noted MDM MDM MDM Narrative Medical decision making narrative: Patient placed on plant ecologist. EKG obtained to evaluate for cardiac arrhythmia/ischemia. Labwork obtained to evaluate for leukocytosis, anemia, and electrolyte derangement. Chest x-ray obtained to evaluate for acute lung pathology, cardiac size, or mediastinal abnormality. History Record Review Discussion w/independent historian: Patient Lab Data Attestation: I reviewed the patient's lab results. Labs: Laboratory Results - last 24 hr 11/11/23 11/11/23 11/11/23 14:45 15:16 17:50 WBC 6.0 RBC 4.08 L Hgb 12.4 Hct 37.2 MCV 91.2 MCH 30.4 MCHC 33.3 RDW Std Deviation 40.7 RDW Coeff of Deidra 12.3 Plt Count 262 MPV 10.3 Immature Gran % (Auto) 0.300 Neut % (Auto) 64.2 Lymph % (Auto) 27.9 [place] % (Auto) 6.3 Eos % (Auto) 0.8 Baso % (Auto) 0.5 Absolute Neuts (auto) 3.9 Absolute Lymphs (auto) 1.68 Nucleated RBC % 0 Sodium 138 Potassium 3.5 Chloride 109 H Carbon Dioxide 25.0 Anion Gap 4 L BUN 14 Creatinine 0.88 Estim Creat Clear Calc 81.69 Est GFR (MDRD) Af Amer 92 Est GFR (MDRD) Non-Af 76 BUN/Creatinine Ratio 15.9 Glucose 96 Calcium 8.9 Troponin I High Sens < 3 L < 3 L Urine Color Straw Urine Clarity Clear Urine pH 6.5 Ur Specific Slater 1.005 Urine Protein Negative Urine Glucose (UA) Normal Urine Ketones Negative Urine Occult Blood Negative Urine Nitrite Negative Urine Bilirubin Negative Urine Urobilinogen Normal Ur Leukocyte Esterase Negative Urine RBC 0 SEEN Urine WBC 0 SEEN Ur Squamous Epith Cells 0 SEEN Urine Bacteria 0 SEEN Urine Mucus 0 SEEN Radiography Diagnostic Testing: Clinical Impression(s) from Imaging Studies Chest X-Ray (more content not included)... Normal [facility] Erythrocyte distribution wid th ratioOrdered By: Carmelina Gilliland on 11-11-2023 Erythrocyte distribution width (RBC) [Ratio] 12.3 % 11.6-14.6 [facility] Erythrocyte distribution wid th standard deviationOrdered By: Carmelina Gilliland on 11-11-2023 Erythrocyte distribution width (RBC) [Entitic vol] 40.7 fL 35.1-43.9 [facility] Hematocrit Auto (Bld) [Volum e fraction]Ordered By: Carmelina Gilliland on 11-11-2023 Hematocrit (Bld) [Volume fraction] 37.2 % 37-47 [facility] Immature granulocytes/100 WB C Auto (Bld)Ordered By: Carmelinajeffrey Gilliland on 11-11-2023 Immature granulocytes/100 WBC (Bld) 0.300 % 0.0-0.9 [facility] Comment on above: IG% - Immature Granu locytes (promyelocytes, myelocytes and metamyelocytes) > 1% indicates that a LEFT SHIFT is Present. Ketones Test strip Ql (U)Ord ered By: Carmelina Gilliland on 11-11-2023 Ketones Ql (U) Negative Negative [facility] L501.4020on 11-11-2023 TROPONIN-I HS < 3 Low 3.0-54.0 [facility] Comment on above: Result Comment: Plea se Note: New Test Units and Gender Specific Reference Ranges. For more information see Policy Stat Procedure [place] High Sensitivity Troponin (TNIH) and attachments. Performed By: #### L 501.4020 #### [facility] [address] [place], [address] L501.5425on 11-11-2023 TROPONIN-I HS < 3 Low 3.0-54.0 [facility] Comment on above: Order Comment: 1Y Result Comment: Plea se Note: New Test Units and Gender Specific Reference Ranges. For more information see Policy Stat Procedure [place] High Sensitivity Troponin (TNIH) and attachments. Performed By: #### L 100.0100, L501.5425, L500.2500 ####[facility] [id number] [place], [address] Laboratory - Chemistry and C hemistry - challengeOrdered By: Carmelina Gilliland on 11-11-2023 CO2 [Moles/Vol] 25.0 mmol/L 21.0-32.0 [facility] Urea nitrogen/Creatinine [Mass ratio] 15.9 mg/mg 10-20 [facility] Laboratory - Hematology and Cell countsOrdered By: Carmelina Gilliland on 11-11-2023 MCH (RBC) [Entitic mass] 30.4 pg 27.0-32.0 [facility] MCHC (RBC) [Mass/Vol] 33.3 g/dL 32-36 [facility] Nucleated RBC/100 WBC (Bld) [Ratio] 0 % 0-5 [facility] Platelet mean volume (Bld) [Entitic vol] 10.3 fL 6.2-12.0 [facility] Platelets (Bld) [#/Vol] 262 10*3/uL 150-450 [facility] Mucus LM Ql (Urine sed)Order ed By: Carmelina Gilliland on 11-11-2023 Mucus Ql (Urine sed) 0 SEEN /hpf [facility] Nitrite Test strip Ql (U)Ord ered By: Carmelina Gilliland on 11-11-2023 Nitrite Ql (U) Negative Negative [facility] No Panel InformationOrdered By: Carmelina Gilliland on 11-11-2023 Troponin I High Sensitivity < 3 pg/mL 3.0-54.0 [facility] Comment on above: Please Note: New Nesha t Units and Gender Specific Reference Ranges. For more information see Policy Stat Procedure [place] High Sensitivity Troponin (TNIH) and attachments. Urine RBC 0 SEEN /hpf 0-5 [facility] Estimated Creatinine Clearance Calc 81.69 ml/min [facility] Estimated GFR (MDRD) Amer 92 mL/min >60 [facility] Comment on above: GFR Calc Estimated GFR (MDRD) Non-Af Amer 76 mL/min >60 [facility] Comment on above: Non- GFR Calc Protein Test strip Ql (U)Ord ered By: Carmelina Gilliland on 11-11-2023 Protein Ql (U) Negative Negative [facility] RBC Auto (Bld) [#/Vol]Ordere d By: Carmelina Gilliland on 11-11-2023 RBC (Bld) [#/Vol] 4.08 10*6/uL 4.2-5.4 [facility] Serum or plasma calcium belle urement (mass/volume)Ordered By: Carmelina Gilliland on 11-11-2023 Calcium [Mass/Vol] 8.9 mg/dL 8.5-10.1 [facility] Serum or plasma creatinine m easurement (mass/volume)Ordered By: Carmelina Gilliland on 11-11-2023 Creatinine [Mass/Vol] 0.88 mg/dL 0.55-1.02 [facility] Comment on above: The validity of the calculated GFR & GFRAA in patients over 70 years has not been determined. Clinical correlation is essential. Serum or plasma urea nitroge n measurement (mass/volume)Ordered By: Carmelina Gilliland on 11-11-2023 Urea nitrogen [Mass/Vol] 14 mg/dL 7-18 [facility] Squamous epithelial cells de tection in urine sediment by light microscopyOrdered By: Carmelina Gilliland on 11-11-2023 Epithelial cells.squamous LM Ql (Urine sed) 0 SEEN /hpf 5-10 [facility] Thin prep Papanicolaou smear with manual screeningOrdered By: Carmelina Gilliland on 11-11-2023 Thin prep Papanicolaou smear with manual screening 4 5-15 [facility] Urinalysis, Completeon 11-11 BACTERIA 0 SEEN Normal None Seen [facility] Comment on above: Order Comment: CLEAN CATCH Performed By: #### L 400.0001 #### [facility] Laboratory [address] [place], [place], [id number] EPI,SQUAMOUS 0 SEEN Normal 5- [facility] Comment on above: Order Comment: CLEAN CATCH Performed By: #### L 400.0001 #### [facility] [address] [place], [address] Mucus Ql (Urine sed) 0 SEEN Normal [facility] Comment on above: Order Comment: CLEAN CATCH Performed By: #### L 400.0001 #### [facility] [address] [place], [address] RBC 0 SEEN Normal 0-5 [facility] Comment on above: Order Comment: CLEAN CATCH Performed By: #### L 400.0001 #### [facility] [address] [place], [address] WBC 0 SEEN Normal 0-5 [facility] Comment on above: Order Comment: CLEAN CATCH Performed By: #### L 400.0001 #### [facility] [address] [place], [place], [address] Urine blood detectionOrdered By: Carmelina Gilliland on 11-11-2023 RBC Ql (U) Negative Negative [facility] Urine clarityOrdered By: Chloé Gilliland on 11-11-2023 Clarity (U) Clear Clear [facility] Urine color determinationOrd ered By: Carmelina Gilliland on 11-11-2023 Color (U) Straw Yellow [facility] Urine glucose detectionOrder ed By: Carmelina Gilliland on 11-11-2023 Glucose Ql (U) Normal mg/dl Normal [facility] Urine leukocyte esterase det ection by dipstickOrdered By: Carmelina Gilliland on 11-11-2023 Leukocyte esterase Test strip Ql (U) Negative Negative [facility] Urine pHOrdered By: Carmelina Gilliland on 11-11-2023 pH (U) 6.5 [pH] 5.0 - 8.0 [facility] Urine sediment bacteria coun t by microscopy (number/high power field)Ordered By: Carmelina Gilliland on 11-11-2023 Bacteria LM.HPF (Urine sed) [#/Area] 0 /[HPF] None Seen [facility] Urine specific gravity measu rementOrdered By: Carmelina Gilliland on 11-11-2023 Specific gravity (U) [Rel density] 1.005 1.002-1.030 [facility] Urine urobilinogen measureme ntOrdered By: Carmelina Gilliland on 11-11-2023 Urobilinogen Ql (U) Normal mg/dl Normal [facility] .Auto Diffon 10-15-2022 Basophil, Absolute 0.0 10 3/mcL Normal 0.0-0.3 [facility] Comment on above: Performed By: #### F T3, FT4, ANEU, TSH, CBC, ADIFF #### [address] [address] Basophils/100 WBC (Bld) 0.5 % Normal 0.0-2.5 [facility] ([place]) Comment on above: Performed By: #### F T3, FT4, ANEU, TSH, CBC, ADIFF #### [address] [address] Eosinophil, Absolute 0.1 10 3/mcL Normal 0.0-0.7 [facility] ([place]) Comment on above: Performed By: #### F T3, FT4, ANEU, TSH, CBC, ADIFF #### [address] [address] Eosinophils/100 WBC (Bld) 0.9 % Normal 0.0-6.0 [facility] ([place]) Comment on above: Performed By: #### F T3, FT4, ANEU, TSH, CBC, ADIFF #### [address] [address] Lymphocyte, Absolute 1.8 10 3/mcL Normal 0.9-4.3 [facility] ([place]) Comment on above: Performed By: #### F T3, FT4, ANEU, TSH, CBC, ADIFF #### [address] [address] Lymphocytes/100 WBC (Bld) 25.7 % Normal 20.0-40.0 [facility] ([place]) Comment on above: Performed By: #### F T3, FT4, ANEU, TSH, CBC, ADIFF #### [address] [address] Monocyte, Absolute 0.3 10 3/mcL Normal 0.1-1.4 [facility] Comment on above: Performed By: #### F T3, FT4, ANEU, TSH, CBC, ADIFF #### [address] [address] Monocytes/100 WBC (Bld) 4.7 % Normal 2.0-13.0 [facility] ([place]) Comment on above: Performed By: #### F T3, FT4, ANEU, TSH, CBC, ADIFF #### [address] [address] Neutrophils/100 WBC (Bld) 68.2 % Normal 50.0-75.0 [facility] ([place]) Comment on above: Performed By: #### F T3, FT4, ANEU, TSH, CBC, ADIFF #### [address] [address] .NEUABSon 10-15-2022 Neutrophil, Absolute 4.8 10 3/mcL Normal 2.3-8.1 [facility] ([place]) Comment on above: Performed By: #### F T3, FT4, ANEU, TSH, CBC, ADIFF #### [place] [id number] CBCon 10-15-2022 Erythrocyte distribution width (RBC) [Ratio] 12.9 % Normal 11.5-15.5 [facility] ([place]) Comment on above: Performed By: #### F T3, FT4, ANEU, TSH, CBC, ADIFF #### [address] [address] Hematocrit (Bld) [Volume fraction] 38.4 % Normal 34.0-46.0 Formerly [facility], [facility] ([place]) Comment on above: Performed By: #### F T3, FT4, ANEU, TSH, CBC, ADIFF #### [address] [address] Hgb 13.0 G/dL Normal 12.0-16.0 Formerly [facility], [facility] ([place]) Comment on above: Performed By: #### F T3, FT4, ANEU, TSH, CBC, ADIFF #### [place] [id number] MCH (RBC) [Entitic mass] 30.4 pg Normal 27.0-33.0 Formerly [facility], [facility] ([place]) Comment on above: Performed By: #### F T3, FT4, ANEU, TSH, CBC, ADIFF #### [place] [address] MCHC 33.7 G/dL Normal 32.0-36.0 Formerly [facility], [facility] ([place] Comment on above: Performed By: #### F T3, FT4, ANEU, TSH, CBC, ADIFF #### [place] [id number] MCV (RBC) [Entitic vol] 90.2 fL Normal 80.0-99.0 A [facility] ([place]) Comment on above: Performed By: #### F T3, FT4, ANEU, TSH, CBC, ADIFF #### [place] [address] Platelet 268 10 3/mcL Normal 150-450 Formerly [facility], [facility] ([place] Comment on above: Performed By: #### F T3, FT4, ANEU, TSH, CBC, ADIFF #### [place] [address] Platelet mean volume (Bld) [Entitic vol] 9.2 fL Normal 6.6-10.5 Formerly [facility], [facility] ([place] Comment on above: Performed By: #### F T3, FT4, ANEU, TSH, CBC, ADIFF #### [place] [address] RBC 4.26 10 6/mcL Normal 4.10-5.30 Formerly [facility], [facility] ([place] Comment on above: Performed By: #### F T3, FT4, ANEU, TSH, CBC, ADIFF #### [place] [address] WBC 7.0 10 3/mcL Normal 4.5-10.8 Formerly [facility], [facility] ([place]) Comment on above: Performed By: #### F T3, FT4, ANEU, TSH, CBC, ADIFF #### [place] [address] FT3on 10-15-2022 Free T3 [Mass/Vol] 3.08 pg/mL Normal 2.30-4.20 [facility] ([place]) Comment on above: Performed By: #### F T3, FT4, ANEU, TSH, CBC, ADIFF #### [address] [address] FT4on 10-15-2022 Free T4 [Mass/Vol] 1.02 ng/dL Normal 0.89-1.76 [facility] ([place]) Comment on above: Result Comment: No te - New Reference Range in effect 20 Performed By: #### F T3, FT4, ANEU, TSH, CBC, ADIFF #### [address] [address] TSHon 10-15-2022 TSH 1.247 mIU/mL Normal 0.550-4.780 [facility]ly [facility], [facility] ([place]) Comment on above: Result Comment: No te - New Reference Range in effect 20 Performed By: #### F T3, FT4, ANEU, TSH, CBC, ADIFF #### [address] [address] Vital Signs Date Time Vital Sign Value Performing Clinician Ryani litabbie 03-06-2025 07:04-0400 Body height 157.[address] Clarissa Roy MD Work Phone: [facility] 03-06-2025 07:04-0400 Body mass index (BMI) [Ratio] 30.3 kg/m2 Dr. Clarissa Roy MD Work Phone: [facility] 03-06-2025 07:04-0400 Body weight 75.[address] Clarissa Roy MD Work Phone: [facility] 03-06-2025 07:04-0400 Diastolic blood pressure 86 mm[Hg] Dr. Clarissa Roy MD Work Phone: [facility] 03-06-2025 07:04-0400 Heart rate 67 /min Dr. Clarissa Roy MD Work Phone: [facility] 03-06-2025 07:04-0400 Respiratory rate 18 /min Dr. Clarissa Roy MD Work Phone: [facility] 03-06-2025 07:04-0400 SaO2% (BldA) [Mass fraction] 100 % Dr. Clarissa Roy MD Work Phone: [facility] 03-06-2025 07:04-0400 Systolic blood pressure 134 mm[Hg] Dr. Clarissa Roy MD Work Phone: [facility] 11-11-2023 18:22-0500 Body temperature 97.3 [degF] [facility] 11-11-2023 18:22-0500 Diastolic blood pressure 86 mm[Hg] [facility] 11-11-2023 18:22-0500 Heart rate 63 /min [facility] 11-11-2023 18:22-0500 Respiratory rate 16 /min [facility] 11-11-2023 18:22-0500 SaO2% (BldA) [Mass fraction] 98 % [facility] 11-11-2023 18:22-0500 Systolic blood pressure 132 mm[Hg] [facility] 11-11-2023 14:24-0500 Body height 157.48 cm [facility] 11-11-2023 14:24-0500 Body mass index (BMI) [Ratio] 29.8 kg/m2 [facility] 11-11-2023 14:24-0500 Body weight 74.1 kg [facility] Encounters Encounter Date Encounter Type Care Provider Facility Start: 03-06-2025 End: 03-06-[address] Clarissa Roy MD Work Phone: [facility] Work Phone: Start: 03-06-2025 End: 03-06-2025 Patient encounter procedure Anupama REAGAN -[facility] Work Phone: Start: 07-19-2024 ambulatory Clarissa Miedlv Facility: [facility] Start: 07-19-2024 End: 07-19-2024 ambulatory [employer] Facility:[facility] Start: 07-03-2024 End: 07-03-2024 ambulatory Clarissa Miedel Facility:[facility] Start: 06-26-2024 End: 06-26-2024 ambulatory [employer] [facility] Facility:[facility] Start: 06-21-2024 End: 06-21-2024 ambulatory [facility] Start: [facility] Start: 06-13-2024 End: 06-13-2024 ambulatory [employer] Facility:[facility] Start: 06-01-2024 End: 06-01-2024 ambulatory [employer] Facility:[facility] Start: 05-25-2024 End: 05-25-2024 Emergency department patient visit [employer] Facility:[facility] Start: 05-04-2024 ambulatory [employer] Facility: [facility] Start: 05-03-2024 ambulatory [employer] Facility: [facility] Start: 04-07-2024 ambulatory [facility] Start: 04-07-2024 End: 04-07-2024 ambulatory [employer] Facility:[facility] Start: 11-11-2023 End: 11-11-2023 Emergency department patient visit [facility] Work Phone: Procedures Date Procedure Procedure Detail Performing Clinician Start: 11-11-2023 Plain chest X-ray Plan of Treatment Date Care Activity Detail Author Start: 11-11-[address] [facility] Basic metabolic 2008 panel with ionized calcium - Serum or Plasma [facility] CBC W Auto Different ial panel - Blood [facility] Patient Education ED Hypertensio n, To Be Confirmed [facility] Work Phone: Patient referral [facility] Work Phone: Thyroid stimulating hormone measurement [facility] Payers Date Payer Category Payer Self-pay [id number] 2023 Self-pay 2007 Unknown [employer] [id number] 23e [id number] Unknown [id number] 2.16.8 [id number] Unknown [id number] 2.16.8 [id number] Unknown [id number] 2.16.8 [id number] Unknown [id number] 2.16.8 [id number] Unknown [id number] 2.16.8 [id number] Unknown [id number] 2.16.8 [id number] Unknown [id number] 2.16.8 [id number] Unknown [id number] 2.16.8 [id number] Unknown [id number] 2.16.8 [id number] Unknown [id number] 2.16.8 [id number] Unknown [id number] 2.16.8 [id number] Unknown [id number] 2.16.8 [id number] Unknown [id number] 2.16.8 [id number] Unknown [id number] 2.16.8 [id number] Social History Date Type Detail Facility [facility]: [facility] Start: 1985 Sex Assigned At Female [facility] Start: 06-01-2024 [facility]finding[facility] Mental Status Date Assessment Result Facility 11-11-2023 Cognitive function Voice/Name [facility] Work Phone: Evaluation note Note Date & Type Note Facility Evaluation note No assessment information availa ble [facility] Work Phone: Evaluation note Note Date & Type Note Facility Evaluation note Diagnosis Onset Date Resolution Fatigue acute March 06 9:28am HTN (hypertension), benign acute March 06, 2025 9:28am Chest pain inactive March 06 9:28am [facility] Work Phone: Reason for referral (narrative) Note Date & Type Note Facility Reason for referral (narrative) No reason for referral information available [facility] Work Phone: Summary Purpose Family History Relationship Condition Age at Onset Recorded Date/T fam mother Prinzmetal angina Unknown Hypertension Unknown grandfather Malignant neoplasm Unknown grandmother Cardiac disease Unknown Myocardial infarction Unknown Advance Directives Advance Directive Response Recorded Date/ Time Living Will No November 11 024 2:46pm Power of Traveling Freight Agent No November 11, 2023 2:46pm Chief Complaint and Reason for Visit Chief Complaint CP Chief Complaint Admit Date 8 M FU March 06, 2025 9:28 am Reason for Visit Admit Date Fatigue March 06, 2025 9:28 am HTN (hypertension), benign March 06 9:28am Chest pain March 06, 2025 9:28 am Additional Source Comments INFORMATION SOURCE (unrecogn ized section and content) DATE CREATED AUTHOR 10/16/2022 [facility] ([place]) DATE CREATED AUTHOR AUTHOR'S ORGANIZ ATION 06/23/2024 [facility] DATE CREATED AUTHOR AUTHOR'S ORGANIZ ATION 08/11/2024 [facility] Care Teams (unrecognized sec tion and content) Team Status: Active Member Role Status Dates No Primary Care Physician Primary Care Provider Active Team Status: Inactive Member Role Status Dates Dr. Carmelina Gilliland MD Emergency Provider Active No Primary Care Physician Primary Care Provider Active Team Status: Active Member Role Status Dates Dr. Clarissa Roy MD Primary Care Provider Active Team Status: Inactive Member Role Status Dates Dr. Clraissa Roy MD Primary Care Provider Active Start: March 06, 2025 End: March 06, 2025 Dr. Clarissa Roy MD Referring Provider Active Start: March 06, 2025 End: March 06, 2025 Anupama Sam NP, [employer] Attending Provider Active Start: March 06, 2025 End: March 06, 2025 Goals (unrecognized section and content) Goals may be documented in a n alternate sectionGoals may be documented in an alternate section FOR RECORDS PERTAINING TO PATIENTS WHO ARE OR HAVE BEEN ENROLLED IN A CHEMICAL DEPENDENCY/SUBSTANCEABUSE PROGRAM, SOME INFORMATION MAY BE OMITTED. This clinical summary was aggregated from multiple sources. Caution should be exercised in using it in the provision of clinical care. This summary normalizes information from multiple sources, and as a consequence, information in this document may materially change the coding, format and clinical context of patient data. In addition, data may be omitted in some cases. CLINICAL DECISIONS SHOULD BE BASED ON THE PRIMARY CLINICAL RECORDS. [employer] provides no warranty or guarantee of the accuracy or completeness of information in this document.
== END | disposition home or self-care (01) ==
PROVIDERS: PCP Family Medicine; Referring Provider Nurse Practitioner Gerontology; Visit Provider Nurse Practitioner Gerontology
DX: R53.83 Other fatigue (principal)
CPT/HCPCS: 36415; 80048; 84443; 85025

== ENCOUNTER → 2025-05-08 | Outpatient (CLI) | payer SELFPAY ==
[2025-05-08 15:38] LABS: Ferritin 42 ng/mL (22-378)
== END | disposition home or self-care (01) ==
PROVIDERS: PCP Family Medicine; Referring Provider Family Medicine; Visit Provider Family Medicine
DX: D64.9 Anemia, unspecified (principal)
CPT/HCPCS: 36415; 82728